=== PATIENT | female | born 1970 | race Caucasian/White ===

== ENCOUNTER 2020-09-17 18:11 | Inpatient (IN) | payer BC ==
[~2020-09-17] VITALS: Ht 162.6 cm; Wt 79.4 kg
[2020-09-17 17:00] VITALS: BP 116/57
[~2020-09-17 18:11] MED LIST: APIX5TAB PO; ATOR40TA59 PO; CARV3.1210 PO; CLOP75TA PO; FURO40TA4 PO; LISI-338 PO; PANT40TA77 PO; POTA20TA4 PO
[2020-09-17 19:00] VITALS: BP 104/53
[2020-09-17] MEDS ORDERED: diphenhydrAMINE 50 MG/ML VIAL IVP PRN (20:00)
[2020-09-17] MEDS ORDERED: DOCUSATE SODIUM 100 MG CAPSULE. PO PRN (20:00)
[2020-09-17] MEDS ORDERED: ACETAMINOPHEN 325 MG TABLET. PO PRN (20:00)
[2020-09-17] MEDS ORDERED: ONDANSETRON PF 4 MG/2 ML VIAL. IV PRN (20:00)
[2020-09-17] MEDS ORDERED: guaiFENesin ORAL 200 MG/10 ML LIQUID. PO PRN (20:00)
--- NOTE | 2020-09-17 20:37 | NUR ---
Notified ICU charge nurse of positive sepsis screen results. Recommended to recheck lactic and call back with results. Notifed Dr. Becerril. Will continue to monitor.
[2020-09-17] MEDS ORDERED: ATORVASTATIN CALCIUM 40 MG TABLET. PO SCH (21:00)
[2020-09-17] MEDS ORDERED: PIP/TAZO PER PHARMACY MC PRN (21:15)
[2020-09-17] MEDS ORDERED: VANCOMYCIN 2 GM in IV NORMAL SALINE 500ML BAG 500 ML IV ONE (21:30)
[2020-09-17] MEDS: APIXABAN 5 MG TABLET. PO SCH (22:02)
[2020-09-17] MEDS: FUROSEMIDE 40 MG/4 ML VIAL. IVP SCH (22:02)
[2020-09-17] MEDS: VANCOMYCIN PER PHARMACY MC PRN (22:23)
--- NOTE | 2020-09-17 22:51 | NUR ---
Pharmacy Vancomycin Dosing Note S:Consulted to monitor and dose vancomycin started 09/17/20. O:MARJAN LAZO is a 50 year old F with UTI ACUTE RESP FAILURE W/HYPOXIA . Height: 5 feet, 4 inches Weight: 80.0 kg [place] Body Weight: 54.70 Adjusted Body Weight: 64.82 Dosing Weight: Actual Other Antibiotics: ZOSYN 3/375GM IV Q6H LABS: Last BUN: 12 Last Creatinine: 1.2 Creatinine Clearance: 59 mL/min Last WBC: 16.4 Last Procalcitonin: Tmax (past 24 hours): Microbiology: I/O: Drug Levels: Last level: on at Last dose given at Vancomycin Dosing: Loading Dose: 2000 mg x1 09/17/20 2200 Dosing Weight: Actual Target Trough: 15-20 A: Based on: Actual WT and CrCl NOTE:PT TANSFERED FROM [facility] USED(09/17/20 12:33 [facility] LABS) P: 1. 09/18/20 1000 Vancomycin 1250 mg IV q12h 2. Follow up Trough level on 09/19/20 at 0930 3. Pharmacy will continue to monitor, follow and adjust therapy as needed. VERO MITCHELL RPH, 09/17/202250 Signed: 09/17/20 at 2255 by VERO MITCHELL RPH PHA Signed: 09/17/20 at 9995 by VERO MITCHELL [facility]
[2020-09-17 23:41] VITALS: BP 121/63
[2020-09-17] MEDS: PIPERACILLIN/TAZOBACTAM 3.375 GM in IV NORMAL SALINE 50ML 50 ML IV SCH (23:49)
[2020-09-18] VITALS (7 sets, daily range): BP systolic 96–113; BP diastolic 50–62
[2020-09-18 04:56] LABS: BASE EXCESS ABG 5 mmol/L (-3-3); HCO3 ABG 30 mmol/L (21-28); PCO2 ABG 46 mmHg (35-46); PO2 ABG 186 mmHg (75-108); SAT O2 ABG 99 % (92-99)
[2020-09-18 04:58] LABS: FIO2 ABG 60
[2020-09-18 05:09] LABS: BASO # 0.1 x10^3/uL (0.0-0.2); BASO % 1 % (0-3); EOS # 0.1 x10^3/uL (0.0-0.7); EOS % 1 % (0-3); HEMATOCRIT 30.5 % (36.0-47.0); HEMOGLOBIN 10.1 g/dL (12.0-15.5); LYMPH # 1.8 x10^3/uL (1.0-4.8); LYMPH % 22 % (24-48); MEAN CORPUSCULAR HEMOGLOBIN 27 pg (25-35); MEAN CORPUSCULAR HGB CONC 33 g/dL (31-37); MEAN CORPUSCULAR VOLUME 83 fL (79-100); MONO # 0.6 x10^3/uL (0.0-1.1); MONO % 8 % (0-9); NEUT # 5.6 x10^3/uL (1.8-7.7); NEUT % 69 % (31-73); PLATELET COUNT 294 x10^3/uL (140-400); RED BLOOD COUNT 3.68 x10^6/uL (3.50-5.40); RED CELL DISTRIBUTION WIDTH 16.2 % (11.5-14.5); WHITE BLOOD COUNT 8.2 x10^3/uL (4.0-11.0)
[2020-09-18 05:15] LABS: CALCIUM 8.8 mg/dL (8.5-10.1); CREATININE 0.9 mg/dL (0.6-1.0); GFR 66.3; POTASSIUM 3.7 mmol/L (3.5-5.1)
[2020-09-18] MEDS: PIPERACILLIN/TAZOBACTAM 3.375 GM in IV NORMAL SALINE 50ML 50 ML IV SCH ×3 (06:32→16:20)
[2020-09-18] MEDS ORDERED: POTASSIUM CHLORIDE 20 MEQ TABLET.ER. PO SCH (08:00)
[2020-09-18] MEDS ORDERED: CLOPIDOGREL BISULFATE 75 MG TABLET PO SCH (08:00)
[2020-09-18] MEDS ORDERED: CARVEDILOL 3.125 MG TABLET. PO SCH (08:00)
[2020-09-18] MEDS ORDERED: RANO500T2 PO (08:55)
[2020-09-18] MEDS ORDERED: POTA10TA12 PO (08:55)
[2020-09-18] MEDS ORDERED: FURO-68 PO (08:55)
[2020-09-18] MEDS ORDERED: DAPA5TAB PO (08:55)
[2020-09-18] MEDS ORDERED: ATOR10TA PO (08:55)
[2020-09-18] MEDS ORDERED: CITA40TA12 PO (08:55)
[2020-09-18] MEDS ORDERED: HYDR25TA PO (08:55)
[2020-09-18] MEDS ORDERED: METO-239 PO (08:55)
[2020-09-18] MEDS ORDERED: SACU1TAB PO (08:55)
[2020-09-18] MEDS ORDERED: TICA90TA PO (08:55)
[2020-09-18] MEDS ORDERED: ISOS30TA4 PO (08:55)
[2020-09-18] MEDS ORDERED: SPIR25TA5 PO (08:55)
[2020-09-18] MEDS: APIXABAN 5 MG TABLET. PO SCH (09:00)
[2020-09-18] MEDS ORDERED: LISINOPRIL 5 MG TABLET. PO SCH (09:00)
[2020-09-18] MEDS ORDERED: FLU VACC QS 2020-21(6MOS+)/PF 0.5 ML SYRINGE. VAX IM ONE (09:00)
[2020-09-18] MEDS: PANTOPRAZOLE 40 MG TABLET.DR. PO SCH (09:45)
[2020-09-18] MEDS: FUROSEMIDE 40 MG/4 ML VIAL. IVP SCH ×2 (09:45→15:11)
[2020-09-18] MEDS: LORazepam 0.5 MG TABLET PO PRN ×2 (09:48→20:49)
[2020-09-18] MEDS ORDERED: VANCOMYCIN 1.25 GM in IV NORMAL SALINE 250ML 250 ML IV SCH (10:00)
[2020-09-18] MEDS ORDERED: ANTI-COAG MONITOR BY PHARMACY. MC PRN (10:15)
--- NOTE | 2020-09-18 11:02 | CONS ---
DATE OF CONSULTATION: PULMONARY CONSULTATION ATTENDING PHYSICIAN: Dr. Ranjith Becerril. REASON FOR CONSULTATION: Respiratory failure. HISTORY OF PRESENT ILLNESS: The patient is a 50-year-old female who has history of COPD. She has history of respiratory failure secondary to pulmonary edema in July. The patient also has a history of cardiac catheterization in 06/2019 and was found to have multivessel coronary artery disease. She underwent stenting to LAD. Her ejection fraction is 25%. She was brought into the hospital with increased shortness of breath. She denies any cough, fever, chills. No anterior chest pain. She did have some left-sided chest pain. The patient denies any increased leg edema. Her chest x-ray was consistent with cardiomegaly and congestive heart failure. Her arterial blood gases revealed a pH of 7.43, pCO2 of 46 and a pO2 of 186 on 60% FiO2. She was treated with BiPAP. Her proBNP was 8500. She is currently off the BiPAP and on nasal cannula. PAST MEDICAL HISTORY: Significant for history of COPD, 30 years of tobacco use, history of diabetes, history of pneumonia, history of respiratory failure secondary to pulmonary edema, history of severe cardiomyopathy with an EF of 25%, ischemic type and history of previous non-STEMI. PAST SURGICAL HISTORY: Appendectomy, and hysterectomy. ALLERGIES: BEE VENOM. REVIEW OF SYSTEMS: Twelve-point system obtained. Pertinent positives discussed in my history of present illness, otherwise noncontributory. All systems that were negative were reviewed as well. SOCIAL HISTORY: She smoked for about 30+ years before recently quitting tobacco. FAMILY HISTORY: Noncontributory to lungs. MEDICATIONS: All reviewed as listed in the MRAD including antibiotics. PHYSICAL EXAMINATION: VITAL SIGNS: Stable. Pulse ox 100%, afebrile, blood pressure 96/51. HEENT: Sclerae nonicteric. NECK: Supple. LUNGS: With diminished breath sounds. CARDIOVASCULAR: With a regular rate. ABDOMEN: Soft. EXTREMITIES: With no pitting edema. LABORATORY DATA: Reviewed. BUN 11, creatinine 0.7. ABG discussed in my history of present illness. White cell count 8.2, hemoglobin 10.1 and platelets 294. IMPRESSION: 1. Acute hypoxic respiratory failure secondary to recurrent acute on chronic systolic congestive heart failure. The patient has prior intubation secondary to congestive heart failure in July. 2. Severe cardiomyopathy with an ejection fraction of 25%, ischemic type. Status post stenting in June of left anterior descending. 3. Underlying chronic obstructive pulmonary disease. 4. Abnormal chest x-ray consistent with congestive heart failure. 5. No clinical symptoms suggestive of pneumonia. RECOMMENDATIONS: 1. Continue present diuresis. 2. P.r.n. BiPAP, currently off. 3. Antibiotics can be discontinued. Clinical suspicion for pneumonia is low. 4. Follow cardiology recommendations. 5. Continue Plavix per Cardiology. 6. PPI. 7. Anticoagulation with Eliquis per Cardiology. 8. Discussed with RN and we will follow along with you. MARIE WAYNE MD DR: GENA/leann JOB#: [id number] / [id number]
--- NOTE | 2020-09-18 11:23 | HP ---
ADMIT DATE: 09/18/2020 CHIEF COMPLAINT: Shortness of breath. HISTORY OF PRESENT ILLNESS: The patient is a pleasant 50-year-old female who has known COPD and CHF. She presents with shortness of breath, rates it a 7/10. She has associated weakness, has been occurring for several days. She increased her home meds, but that did not work. She is also COVID positive, apparently. I discussed the case with the ER physician. The patient has now been admitted to the COVID floor where she is being examined. I am planning to consult Pulmonary Medicine and Cardiology and give her COVID protocol and COPD protocol. PAST MEDICAL HISTORY: COPD, hypertension, hyperlipidemia, arthritis, chronic pain, GERD. ALLERGIES: BEES. FAMILY HISTORY: Diabetes. SOCIAL HISTORY: She still smokes. No drink or drugs. MEDICATIONS: Reviewed, please refer to the MRAD. REVIEW OF SYSTEMS: GENERAL: No history of weight change, weakness or fevers. SKIN: No bruising, hair changes or rashes. EYES: No blurred, double or loss of vision. NOSE AND THROAT: No history of nosebleeds, hoarseness or sore throat. HEART: No history of palpitations, chest pain or shortness of breath on exertion. PULMONARY: She complains of shortness of breath and cough. GASTROINTESTINAL: Denies changes in appetite, nausea, vomiting, diarrhea or constipation. GENITOURINARY: No history of frequency, urgency, hesitancy or nocturia. NEUROLOGIC: Denies history of numbness, tingling, tremor or weakness. PSYCHIATRIC: No history of panic, anxiety or depression. ENDOCRINE: No history of heat or cold intolerance, polyuria or polydipsia. EXTREMITIES: Denies muscle weakness, joint pain, pain on walking or stiffness. PHYSICAL EXAMINATION: VITALS: Within normal limits and are stable. GENERAL: No apparent distress. Alert and oriented. HEENT: Normal cephalic atraumatic, external auditory canals are patent. EYES: Extraocular muscles are intact, pupils are equally round and reactive to light and accommodation. MUSCULOSKELETAL: Well developed, well nourished, good range of motion ENDOCRINE: No thyromegaly was palpated. LYMPHATICS: No cervical chain or axillary nodes were noted. HEMATOPOIETIC: No bruising. NECK: Supple, no JVD, no thyromegaly was noted. PULMONARY: She has bibasilar crackles. HEART: RRR, S1, S2 present. Peripheral pulses intact, no obvious murmurs were noted. ABDOMEN: Soft, nontender. Positive bowel sounds no organomegaly, normal bowel sounds. EXTREMITIES: Without any cyanosis, clubbing, or edema. Pedal pulses intact, Homans sign is negative. NEUROLOGIC: Normal speech, normal tone. A & O x3, moves all extremities, no obvious focal deficits. PSYCHIATRIC: Normal affect, normal mood. Stable. SKIN: No ulcerations or rashes, good skin turgor, no jaundice. VASCULAR: Good capillary refill, neurovascular bundle appears to be intact. IMAGING: Chest x-ray is pending. LABORATORY DATA: White count 8, hemoglobin 10, platelets 294. Electrolytes: Sodium 142, potassium 3.7, chloride 105, bicarbonate 29, BUN 11, creatinine 0.9, glucose 92. BNP 8543. ASSESSMENT AND PLAN: Respiratory failure, multifactorial including congestive heart failure, chronic obstructive pulmonary disease, and COVID-19. The patient has been admitted. We will start COVID protocol. Consult Pulmonary, consult Cardiology. IV Lasix, cardiac monitoring, home medications, deep venous thrombosis prophylaxis. Full code. Prognosis long-term is guarded. REDD GARCIA DO DR: ASHANTI/leann JOB#: [id number] / [id number]
[2020-09-18] MEDS: VANCOMYCIN PER PHARMACY MC PRN (11:25)
[2020-09-18] MEDS: NON FORMULARY ITEM (Dapagliflozin Propanediol (Farxiga) 5 MG) PO SCH (11:45)
[2020-09-18] MEDS ORDERED: hydrOXYzine 25 MG TABLET PO PRN ×2 (11:45)
[2020-09-18] MEDS: RANOLAZINE 500 MG TAB.ER.12H PO SCH ×2 (12:00→20:50)
[2020-09-18] MEDS: SACUBITRIL/VALSARTAN 24/26MG TABLET. PO SCH ×2 (12:00→20:48)
[2020-09-18] MEDS: ISOSORBIDE MONONITRATE ER 30 MG TAB.ER.24H PO SCH (12:00)
[2020-09-18] MEDS: SPIRONOLACTONE 25 MG TABLET PO SCH (12:00)
[2020-09-18] MEDS: METOPROLOL SUCC 24HR ER 25 MG TAB.ER.24H. PO SCH ×2 (12:00→12:52)
[2020-09-18] MEDS: POTASSIUM CHLORIDE 10 MEQ TABLET.ER. PO SCH ×2 (12:00→20:48)
--- NOTE | 2020-09-18 12:20 | PDOC2 ---
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 Bo SOURCE Source: Chart review, Patient HISTORY OF PRESENT ILLNESS HISTORY OF PRESENT ILLNESS This is a 50 yo female who presented to [facility] ER secondary to shortness of breath, respiratory distress. Has been out of most of her medications for a couple of weeks, including Entresto, Lasix, and Brilinta. Reports shortness of breath, fluid retention, and orthopnea. Denies any fever, no productive cough, no COVID-19 contact. CXR upon arrival with pulmonary edema. Was transferred to [facility] for further evaluation and treatment. Denies any chest pain, palpitations, dizziness, diaphoresis, or nausea/vomiting. Has a h/o CAD and ischemic cardiomyopathy. Was late-presentation STEMI 07/2019. Underwent PCI/stent at that time. Unfortunately, failed to f/u in clinic following STEMI. Reports she has be evaluation by [facility] Heart Failure team, but has not seem them since November. Symptoms have improved with IV diuresis. PAST MEDICAL HISTORY Cardiovascular: CAD, CHF, [place] Pulmonary: COPD GI: GERD Psych: Anxiety, Depression Endocrine: Diabetes PAST SURGICAL HISTORY Past Surgical History: Appendectomy, Hysterectomy FAMILY HISTORY Family History: Hypertension SOCIAL HISTORY Social History Smoke: <1 pack per day ALCOHOL: none Drugs: None Lives: alone CURRENT MEDICATIONS CURRENT MEDICATIONS Current Medications Medications (Trade) Dose Ordered Sig/Zeferino Route PRN Reason Start Time Stop Time Status Last Admin Dose Admin Acetaminophen (Tylenol) 650 mg PRN Q4HRS PRN PO TEMP OVER 100.4F OR MILD PAIN 09/17/20 20:00 09/18/20 09:45 Lorazepam (Ativan) 0.5 mg PRN Q4HRS PRN PO ANXIETY / AGITATION 09/17/20 20:00 09/18/20 09:48 Apixaban (Eliquis) 5 mg BID PO 09/17/20 21:00 09/18/20 11:42 DC 09/17/20 22:02 Atorvastatin Calcium (Lipitor) 40 mg QHS PO 09/17/20 21:00 09/18/20 11:42 DC 09/17/20 22:02 Pantoprazole Sodium (Protonix) 40 mg DAILYAC PO 09/18/20 07:30 09/18/20 09:45 Potassium Chloride (Klor-Con) 20 meq DAILYWBKFT PO 09/18/20 08:00 09/18/20 11:42 DC 09/18/20 09:46 Furosemide (Lasix) 40 mg BID92 IVP 09/17/20 20:15 09/18/20 09:45 Vancomycin HCl (Vanco Per Pharmacy) 1 each PRN DAILY PRN MC SEE COMMENTS 09/17/20 21:30 09/18/20 11:25 Vancomycin HCl 2 gm/Sodium Chloride 500 ml @ 250 mls/hr 1X ONCE IV 09/17/20 21:30 09/17/20 23:29 DC 09/17/20 22:04 Piperacillin Sod/ Tazobactam Sod 3.375 gm/Sodium Chloride 50 ml @ 100 mls/hr Q6HRS IV 09/18/20 00:00 09/18/20 06:32 Vancomycin HCl 1.25 gm/Sodium Chloride 250 ml @ 166.667 mls/hr Q12H IV 09/18/20 10:00 09/18/20 09:50 ALLERGIES ALLERGIES: Coded Allergies: bee venom protein (honey bee) (Verified Allergy, Severe, ANAPHYLAXIS, 08/19/19) I S O L A T I O N *CONTACT* (Verified Allergy, Unknown, 09/01/19) mrsa/stenotrophomonas maltophilia ROS Review of System 14 point ROS conducted with pertinent positives noted above in HPi PHYSICAL EXAM General: Alert, Oriented X3, Cooperative HEENT: Atraumatic, Mucous membr. moist/pink Lungs: Other (on NC. NAD. CXR reviewed. ) Heart: Regular rate (tele SR) Abdomen: Other (non-distended ) Extremities: Other (trace bilateral LE edema ) Skin: No significant lesion Neuro: Normal speech Psych/Mental Status: Mental status NL, Mood NL, Other (drowsy) VITALS/I&O VITALS/I&O: Vital Signs Date Time Temp Pulse Resp B/P (MAP) Pulse Ox O2 Delivery O2 Flow Rate FiO2 09/18/20 10:56 98.7 84 18 103/56 (72) 91 Nasal Cannula 98.7 09/18/20 08:00 3.0 I & O 09/17/20 09/17/20 09/18/20 15:00 23:00 07:00 Intake Total 200 ml 550 ml Balance 200 ml 550 ml LABS Lab: Laboratory Tests Test 09/17/20 21:00 09/18/20 04:47 09/18/20 04:54 Lactic Acid Level 1.1 mmol/L (0.4-2.0) White Blood Count 8.2 x10^3/uL (4.0-11.0) Red Blood Count 3.68 x10^6/uL (3.50-5.40) Hemoglobin 10.1 g/dL (12.0-15.5) L Hematocrit 30.5 % (36.0-47.0) L Mean Corpuscular Volume 83 fL (79-100) Mean Corpuscular Hemoglobin 27 pg (25-35) Mean Corpuscular Hemoglobin Concent 33 g/dL (31-37) Red Cell Distribution Width 16.2 % (11.5-14.5) H Platelet Count 294 x10^3/uL (140-400) Neutrophils (%) (Auto) 69 % (31-73) Lymphocytes (%) (Auto) 22 % (24-48) L Monocytes (%) (Auto) 8 % (0-9) Eosinophils (%) (Auto) 1 % (0-3) Basophils (%) (Auto) 1 % (0-3) Neutrophils # (Auto) 5.6 x10^3/uL (1.8-7.7) Lymphocytes # (Auto) 1.8 x10^3/uL (1.0-4.8) Monocytes # (Auto) 0.6 x10^3/uL (0.0-1.1) Eosinophils # (Auto) 0.1 x10^3/uL (0.0-0.7) Basophils # (Auto) 0.1 x10^3/uL (0.0-0.2) Sodium Level 142 mmol/L (136-145) Potassium Level 3.7 mmol/L (3.5-5.1) Chloride Level 105 mmol/L (98-107) Carbon Dioxide Level 29 mmol/L (21-32) Anion Gap 8 (6-14) Blood Urea Nitrogen 11 mg/dL (7-20) Creatinine 0.9 mg/dL (0.6-1.0) Estimated GFR (Cockcroft-Gault) 66.3 Glucose Level 92 mg/dL (70-99) Calcium Level 8.8 mg/dL (8.5-10.1) IP-Hgh-N-Type Natriuretic Peptide 8543 pg/mL (0-124) H O2 Saturation 99 % (92-99) Arterial Blood pH 7.43 (7.35-7.45) Arterial Blood pCO2 at Patient Temp 46 mmHg (35-46) Arterial Blood pO2 at Patient Temp 186 mmHg (75-108) H Arterial Blood HCO3 30 mmol/L (21-28) H Arterial Blood Base Excess 5 mmol/L (-3-3) H FiO2 60 Laboratory Tests 09/18/20 04:47 Laboratory Tests 09/18/20 04:47 ECHOCARDIOGRAM ECHOCARDIOGRAM <Conclusion> The systolic function is severely impaired. EF 25% There is global hypokinesis of the left ventricle. The IVC is normal in size and collapses <50% with inspiration. DATE: 08/19/19 1535 HEART CATH HEART CATH Conclusion 1. Late presentation of an anterior STEMI 2. Three vessel coronary disease. 3. Cardiogenic shock with severe LV dysfunction. EF 25%. 4. Severe PAD 5. Successful placement of a Resolute 3.5/38 mm NIYA in the proximal to mid LAD Recommendations ASA 81mg daily Continue tirofiban infusion Continue heparin gtt Diuresis as tolerated with continued support with pressors. Vascular surgery consult for possible embolectomy if any progressive CLI. DATE: 08/19/19 1115 ASSESSMENT/PLAN ASSESSMENT/PLAN 1. Acute respiratory failure with CHF, AE COPD 2. Acute on chronic systolic CHF; due to missed meds. Has been out of Lasix/Entresto x 2 weeks. Has been evaluated by [facility] HF team. Last followup in November. 3. CAD s/p PCI/NIYA to LAD 07/2019. late presentation STEMI 4. Ischemic cardiomyopathy; LVEF 25% per echo 08/07 5. LE PAD 6. Diabetes, II 7. Tobaccoism; discussed/encouraged cessation 8. PUI Recommendations Diuresis with monitoring of renal function Resume Entresto, Toprol, aldactone Secondary prevention Brilinta, statin. Add ASA Obtain cardiac records from [facility] Echo if none recently (if COVID negative) to re-evaluate LVEF Supportive care Discussed importance of medical compliance JULIEN ANN MD 09/18/20 0216: CARDIAC CONSULT ASSESSMENT/PLAN ASSESSMENT/PLAN The patient was seen and interviewed as well as examined at the bedside. The benita rt was reviewed. The case was discussed. Agree with the plan of care. EMILY SORIA APRN Sep 18, 2020 12:19 JULIEN ANN MD Sep 18, 2020 16:56
[2020-09-18] MEDS: CITALOPRAM 20 MG TABLET. PO SCH (12:48)
[2020-09-18] MEDS: TICAGRELOR 90 MG TABLET. PO SCH ×2 (12:49→20:48)
[2020-09-18] MEDS: HYDROcodone/APAP 5/325MG 1 TAB TABLET PO PRN ×2 (12:49→20:56)
[2020-09-18] MEDS: LACTOBACILLUS RHAMNOSUS GG 1 CAPSULE. PO SCH ×2 (12:52→20:51)
--- NOTE | 2020-09-18 17:33 | NUR ---
JUDI following for discharge planning. Spoke with RN and reviewed chart. Pt from home. Pt ASHLEY pending, 2l 02, cardiac diet. Pt on IV Zosyn and IV Vanco. JUDI following. Addendum: 09/19/20 at 0910 by NAMITA LAU Pt transferred to . leonard Gaston to follow.
[2020-09-18] MEDS ORDERED: ATORVASTATIN CALCIUM 10 MG TABLET. PO SCH (21:00)
[2020-09-19] VITALS (8 sets, daily range): BP systolic 90–123; BP diastolic 49–84
--- NOTE | 2020-09-19 00:20 | NUR ---
Pt transferred from 6s with belongings ,via wc with seamer. Pt a/ox4, denies c/o pain at this time. Pt oriented to unit, staff, explained poc. call light in reach, vss, will cont to monitor pt status and safety. pmrn
--- NOTE | 2020-09-19 08:33 | PDOC ---
PULMONARY PROGRESS NOTES DATE: 09/19/20 TIME: 08:32 Subjective Patient feels better off of BiPAP on oxygen supplementation normally does not wear oxygen Vitals Vital Signs Date Time Temp Pulse Resp B/P (MAP) Pulse Ox O2 Delivery O2 Flow Rate FiO2 09/19/20 07:29 98.6 82 18 90/49 (63) 97 Nasal Cannula 2.0 98.6 ROS: No Nausea, No Chest Pain, No Abdominal Pain, No Increase Cough General: Alert Lungs: Clear Cardiovascular: S1, S2 Abdomen: Soft Neuro Exam: Alert Extremities: No Edema Skin: Warm Labs Laboratory Tests Test 09/17/20 21:00 09/18/20 00:01 09/18/20 04:47 09/18/20 04:54 Lactic Acid Level 1.1 mmol/L (0.4-2.0) Coronavirus (PCR) Not detected (Not Detected) White Blood Count 8.2 x10^3/uL (4.0-11.0) Red Blood Count 3.68 x10^6/uL (3.50-5.40) Hemoglobin 10.1 g/dL (12.0-15.5) Hematocrit 30.5 % (36.0-47.0) Mean Corpuscular Volume 83 fL (79-100) Mean Corpuscular Hemoglobin 27 pg (25-35) Mean Corpuscular Hemoglobin Concent 33 g/dL (31-37) Red Cell Distribution Width 16.2 % (11.5-14.5) Platelet Count 294 x10^3/uL (140-400) Neutrophils (%) (Auto) 69 % (31-73) Lymphocytes (%) (Auto) 22 % (24-48) Monocytes (%) (Auto) 8 % (0-9) Eosinophils (%) (Auto) 1 % (0-3) Basophils (%) (Auto) 1 % (0-3) Neutrophils # (Auto) 5.6 x10^3/uL (1.8-7.7) Lymphocytes # (Auto) 1.8 x10^3/uL (1.0-4.8) Monocytes # (Auto) 0.6 x10^3/uL (0.0-1.1) Eosinophils # (Auto) 0.1 x10^3/uL (0.0-0.7) Basophils # (Auto) 0.1 x10^3/uL (0.0-0.2) Sodium Level 142 mmol/L (136-145) Potassium Level 3.7 mmol/L (3.5-5.1) Chloride Level 105 mmol/L (98-107) Carbon Dioxide Level 29 mmol/L (21-32) Anion Gap 8 (6-14) Blood Urea Nitrogen 11 mg/dL (7-20) Creatinine 0.9 mg/dL (0.6-1.0) Estimated GFR (Cockcroft-Gault) 66.3 Glucose Level 92 mg/dL (70-99) Calcium Level 8.8 mg/dL (8.5-10.1) GG-Xde-X-Type Natriuretic Peptide 8543 pg/mL (0-124) O2 Saturation 99 % (92-99) Arterial Blood pH 7.43 (7.35-7.45) Arterial Blood pCO2 at Patient Temp 46 mmHg (35-46) Arterial Blood pO2 at Patient Temp 186 mmHg (75-108) Arterial Blood HCO3 30 mmol/L (21-28) Arterial Blood Base Excess 5 mmol/L (-3-3) FiO2 60 Medications Active Scripts Medications Dose Route/Sig Max Daily Dose Days Date Category Ranexa (Ranolazine) 500 Mg Tab.er.12h 1 Tab PO BID 30 09/18/20 Reported Klor-Con 10 (Potassium Chloride) 10 Meq Tablet.er 2 Tab PO BID 30 09/18/20 Reported Metoprolol Succinate ( Xl ) (Metoprolol Succinate) 25 Mg Tab.er.24h 0.5 Tab PO DAILY 09/18/20 Reported Spironolactone 25 Mg Tablet 0.5 Tab PO DAILY 09/18/20 Reported Hydroxyzine Hcl 25 Mg Tablet 1-2 Tab PO PRN QHS PRN 09/18/20 Reported Isosorbide Mononitrate Er (Isosorbide Mononitrate) 30 Mg Tab.er.24h 1 Tab PO DAILY 09/18/20 Reported Lasix (Furosemide) 40 Mg Tablet 40 Mg PO BID 09/18/20 Reported Celexa (Citalopram Hydrobromide) 40 Mg Tablet 1 Tab PO DAILY 09/18/20 Reported Lipitor (Atorvastatin Calcium) 10 Mg Tablet 1 Tab PO DAILY 09/18/20 Reported Brilinta (Ticagrelor) 90 Mg Tablet 90 Mg PO BID 09/18/20 Reported Farxiga (Dapagliflozin Propanediol) 5 Mg Tablet 5 Mg PO DAILY 09/18/20 Reported Entresto 24 mg-26 mg Tablet (Sacubitril/Valsartan) 1 Each Tablet 1 Each PO BID 09/18/20 Reported Pantoprazole Sodium (Pantoprazole Sodium) 40 Mg Tablet.dr 40 Mg PO DAILYAC 30 09/01/19 Rx Impression . IMPRESSION: 1. Acute hypoxic respiratory failure secondary to recurrent acute on chronic systolic congestive heart failure. The patient has prior intubation secondary to congestive heart failure in July. 2. Severe cardiomyopathy with an ejection fraction of 25%, ischemic type. Status post stenting in June of left anterior descending. 3. Underlying chronic obstructive pulmonary disease. 4. Abnormal chest x-ray consistent with congestive heart failure. 5. No clinical symptoms suggestive of pneumonia. Plan . Continue current oxygen supplementation Diurese Follow cardiology input Can discharge from my standpoint of view next 24- 48-hour BRIGETTE JAVIER MD Sep 19, 2020 08:33
[2020-09-19] MEDS: POTASSIUM CHLORIDE 10 MEQ TABLET.ER. PO SCH ×2 (08:55→21:11)
[2020-09-19] MEDS: CITALOPRAM 20 MG TABLET. PO SCH (08:56)
[2020-09-19] MEDS: TICAGRELOR 90 MG TABLET. PO SCH (08:56)
[2020-09-19] MEDS: PANTOPRAZOLE 40 MG TABLET.DR. PO SCH (08:56)
[2020-09-19] MEDS: LACTOBACILLUS RHAMNOSUS GG 1 CAPSULE. PO SCH ×2 (08:56→21:11)
[2020-09-19] MEDS: FUROSEMIDE 40 MG/4 ML VIAL. IVP SCH ×2 (08:57→15:10)
[2020-09-19] MEDS: SACUBITRIL/VALSARTAN 24/26MG TABLET. PO SCH ×2 (09:00→21:00)
[2020-09-19] MEDS: RANOLAZINE 500 MG TAB.ER.12H PO SCH ×2 (09:00→21:11)
[2020-09-19] MEDS: NON FORMULARY ITEM (Dapagliflozin Propanediol (Farxiga) 5 MG) PO SCH (09:00)
[2020-09-19] MEDS: LORazepam 0.5 MG TABLET PO PRN ×2 (09:03→21:10)
[2020-09-19] MEDS: HYDROcodone/APAP 5/325MG 1 TAB TABLET PO PRN ×2 (09:03→21:11)
--- NOTE | 2020-09-19 09:14 | PDOC ---
PROGRESS NOTES Date of Service: DATE: 09/19/20 TIME: 09:05 Chief Complaint Chief Complaint impression ACUTE HYPOXIC Respiratory failure, multifactorial including congestive heart failure, systolic function is severely impaired. EF 25% global hypokinesis of the left ventricle ACUTE exac chronic obstructive pulmonary disease, neg COVID-19. morbid obesity Acute myocardial infarction with an elevated troponin 09-01 plan admitted. Consult Pulmonary, consult Cardiology. IV Lasix, cvc cardiac monitoring, home medications, deep venous thrombosis prophylaxis. smoking cessation education provided Full code. Prognosis long-term is guarded. 38 MIN PT EXAM, CHART REVIEW,> 50% OF TIME SPENT WITH EXAM, CHART REVIEW, PT CARE COORDINATION History of Present Illness History of Present Illness HPI 50-year-old female who has known COPD and CHF. She presented with shortness of breath, rates it a 7/10. notes associated weakness, has been occurring for several days. She increased her home meds, but that did not work. She is also COVID NEG , been admitted to the CVC floor where she is being examined. consults with Pulmonary Medicine and Cardiology Vitals Vitals Vital Signs Date Time Temp Pulse Resp B/P (MAP) Pulse Ox O2 Delivery O2 Flow Rate FiO2 09/19/20 09:03 Nasal Cannula 2.0 09/19/20 08:54 97 09/19/20 07:29 98.6 82 18 90/49 (63) 98.6 Physical Exam Physical Exam HEENT: Normal cephalic atraumatic, external auditory canals are patent. EYES: Extraocular muscles are intact, pupils are equally round and reactive to light and accommodation. MUSCULOSKELETAL: Well developed, well nourished, good range of motion ENDOCRINE: No thyromegaly was palpated. LYMPHATICS: No cervical chain or axillary nodes were noted. HEMATOPOIETIC: No bruising. NECK: Supple, no JVD, no thyromegaly was noted. PULMONARY: She has bibasilar crackles. HEART: RRR, S1, S2 present. Peripheral pulses intact, no obvious murmurs were noted. ABDOMEN: Soft, nontender. Positive bowel sounds no organomegaly, normal bowel sounds. EXTREMITIES: Without any cyanosis, clubbing, or edema. Pedal pulses intact, Homans sign is negative. NEUROLOGIC: Normal speech, normal tone. A & O x3, moves all extremities, no obvious focal deficits. PSYCHIATRIC: Normal affect, normal mood. Stable. SKIN: No ulcerations or rashes, good skin turgor, no jaundice. VASCULAR: Good capillary refill, neurovascular bundle appears to be intact. General: Alert, Oriented X3, Cooperative, No acute distress Heart: Regular rate (tele SR), Normal S1 Lungs: Clear Abdomen: Soft, Other (non-distended ) Extremities: No cyanosis, Other (trace bilateral LE edema ) Skin: No significant lesion Labs LABS APPROVED REPORT EXAM: Two-dimensional and M-mode echocardiogram with Doppler and color Doppler. Other Information Quality : Average HR: 117bpm Technically limited study due to Rapid heart rate. INDICATION Cardiomyopathy 2D DIMENSIONS RVDd 2.5 (2.9-3.5cm) Left Atrium(2D) 3.8 (1.6-4.0cm) IVSd 1.1 (0.7-1.1cm) Aortic Root(2D) 2.9 (2.0-3.7cm) LVDd 5.4 (3.9-5.9cm) LVOT Diameter 1.9 (1.8-2.4cm) PWd 1.1 (0.7-1.1cm) LVDs 3.7 (2.5-4.0cm) FS (%) 31.9 % SV 84.7 ml LVEF(%) 59.5 (>50%) Aortic Valve AoV Peak Erick. 108.3cm/s AoV VTI 17.0cm AO Peak GR. 4.7mmHg LVOT VTI 10.28cm AO Mean GR. 4mmHg TDI Lateral E' P. V 5.86cm/s Medial E' P. V 4.57cm/s Pulmonary Vein S1 Velocity 28.1cm/s S2 Velocity 45.85cm/s D2 Velocity 45.8cm/s PVa duration 101msec LEFT VENTRICLE The Left Ventricle is borderline dilated. There is mild concentric left ventricular hypertrophy. The systolic function is severely impaired. EF 25% There is global hypokinesis of the left ventricle. Tissue Doppler imaging reveals moderate left ventricular diastolic dysfunction. RIGHT VENTRICLE The right ventricle is normal size. There is normal right ventricular wall thickness. RV Systolic function is mildly to moderately reduced. ATRIA The left atrium size is normal. The right atrium size is normal. The interatrial septum is intact with no evidence for an atrial septal defect or patent foramen ovale as noted on 2-D or Doppler imaging. AORTIC VALVE The aortic valve is not well visualized. Doppler and Color Flow revealed no significant aortic regurgitation. There is no significant aortic valvular stenosis. MITRAL VALVE The mitral valve is normal in structure and function. There is no evidence of mitral valve prolapse. There is no mitral valve stenosis. Doppler and Color-flow revealed trace mitral regurgitation. TRICUSPID VALVE The tricuspid valve is normal in structure and function. Doppler and Color Flow revealed trace tricuspid regurgitation. There is no tricuspid valve stenosis. PULMONIC VALVE The pulmonic valve is not well visualized. Doppler and Color Flow revealed no pulmonic valvular regurgitation. There is no pulmonic valvular stenosis. GREAT VESSELS The aortic root is normal in size. The IVC is normal in size and collapses <50% with inspiration. PERICARDIAL EFFUSION There is no evidence of significant pericardial effusion. Critical Notification Critical Value: No <Conclusion> The systolic function is severely impaired. EF 25% There is global hypokinesis of the left ventricle. The IVC is normal in size and collapses <50% with inspiration. Signed by : Julien Moore, Electronically Approved : 08/19/2019 17:08:08 DICTATED AND SIGNED BY: IRWIN HESTER MD DATE: 08/25/19 1539 CC: SAMARA WILLIS II, MD; CHINA SCOTT MD; JULIEN MOORE MD; NO PC P; KAYLA KWOK MD; BRIGETTE JAVIER MD ~ EXAM: CT OF THE CHEST, ABDOMEN AND PELVIS WITHOUT CONTRAST. HISTORY: Fever of unknown origin. TECHNIQUE: Computed tomography of the chest, abdomen and pelvis was performed without intravenous contrast. COMPARISON: None. FINDINGS: Bone windows reveal no suspicious lesions. An endotracheal tube has its tip above the kami. A nasogastric tube has its tip just below the gastroesophageal junction. There are no pathologically enlarged mediastinal or axillary lymph nodes. There is no pericardial effusion. The heart is mildly enlarged. The main pulmonary artery measures 3.6 cm. There are atherosclerotic calcifications of the coronary arteries. There are small bilateral pleural effusions. The posterior aspect of both lower lobes are atelectatic. Interstitial line thickening indicates mild pulmonary edema. An uncalcified nodule in the left lower lobe measures 4 mm and may be associated with mild infiltrate. Groundglass opacities in the bases most likely reflect mild edema. The liver, spleen, adrenal glands, pancreas and kidneys are unremarkable without contrast. There is vicarious excretion of contrast in the gallbladder. There is mild pericholecystic edema. There are no pathologically enlarged lymph nodes. The bladder is decompressed by a Ramos catheter. There are changes of pelvic floor relaxation. There is no evidence of appendicitis. There is no small bowel obstruction. Bilateral inguinal lymph nodes are prominent measuring up to 2.7 x 1.2 cm on the right. Lower extremity edema is noted. IMPRESSION: 1. Small to moderate bilateral pleural effusions with bilateral dependent atelectasis and mild pulmonary edema. Superimposed infection and atelectasis cannot be excluded. 2. Prominent bilateral inguinal lymph nodes may reflect lower extremity inflammation. Correlate clinically. 3. Enlargement of the pulmonary arteries suggests pulmonary arterial hypertension. Mild cardiomegaly. *One or more of the following individualized dose reduction techniques were utilized for this examination: 1. Automated exposure control. 2. Adjustment of the mA and/or kV according to patient size. 3. Use of iterative reconstruction technique. Electronically signed by: Lalit Hester MD (08/25/2019 3:36 PM) [facility] DICTATED and SIGNED BY: IRWIN HESTER MD DATE: 08/25/19 1536 Assessment and Plan Assessmemt and Plan Counseling Smoking Cessation A clinician can make a significant impact on a tobacco user. Clinicians can address the social, financial, and emotional issues surrounding tobacco use, in addition to the health impacts associated with use. Find information about why it's important to certified personal finance counselor tobacco users, as well as when and how to do so. Get the why, when, and how of helping patients quit in this infographic. Supporting Youth who are Addicted to Nicotine: Advice for Pediatricians This factsheet provides information for pediatricians about how to support adolescents who are addicted to nicotine from cigarettes, vaping, or other tobacco products. The content includes tips for screening, counseling, and helping youth with a cessation attempt. This factsheet is also available in Hebrew Nicotine Replacement Therapy and Adolescent Patients: Information for Pediatricians This document provides information for pediatricians about how to use nicotine replacement therapy (NRT) to support adolescents who are addicted to nicotine from cigarettes, vaping, or other tobacco products. Note: Though the information below talks mostly about smoking, the information can be helpful for users of other tobacco products as well. Why Should You [employer] for Smoking Cessation? Parental smoking is the main source of children's secondhand smoke exposure. When parents quit smoking, adolescents are less likely to start. Pediatric clinicians have direct contact with roughly 25% of the nation's smokers through child health visits. Parental counseling by the child's physician increases rates of parents' attempts to quit. Most parents see their child's provider more frequently than their own, with an average of 10 visits in the first two years of a child's life. While many children are covered by Medicaid, their parents may be uninsured, so pediatric clinicians may be their only available source of counseling. When Should You [employer] for Smoking Cessation? If adolescents and/or parents are smoking, certified personal finance counselor them to quit tobacco use. If parents or other family members are smoking, certified personal finance counselor them to prevent and reduce children's exposure to secondhand smoke. If a new parent is a current or former smoker, assist them in their efforts to avoid relapse following . If a pre-adolescent or adolescent patient is not a smoker, certified personal finance counselor them to prevent initiation of tobacco use. How Should You [employer] for Smoking Cessation? Brief counseling, delivered in as little as three minutes, can be effective. Focus on the child as a primary beneficiary of smoking cessation. Counseling Techniques 2 As + R Physicians can help patients who smoke to quit through an effective 30-second intervention, 2 As + R (Ask, Assist, Refer): Physicians Ask patients if they smoke, Assist them in their quit attempt, and Refer them to cessation services (1-800-QUIT NOW or to community/ internet quit resources). Information on the 2 As + R strategy can be found in the presentations listed on the Downloadable PowerPoint Presentations page. 5 As The [place] [employer] and Quality has developed five major steps to intervention (the "5 As") for clinicians to provide counseling to tobacco users who want to quit. Comment Review of Relevant I have reviewed the following items arian (where applicable) has been applied. Labs Laboratory Tests Test 09/17/20 21:00 09/18/20 00:01 09/18/20 04:47 09/18/20 04:54 Lactic Acid Level 1.1 mmol/L (0.4-2.0) Coronavirus (PCR) Not detected (Not Detected) White Blood Count 8.2 x10^3/uL (4.0-11.0) Red Blood Count 3.68 x10^6/uL (3.50-5.40) Hemoglobin 10.1 g/dL (12.0-15.5) Hematocrit 30.5 % (36.0-47.0) Mean Corpuscular Volume 83 fL (79-100) Mean Corpuscular Hemoglobin 27 pg (25-35) Mean Corpuscular Hemoglobin Concent 33 g/dL (31-37) Red Cell Distribution Width 16.2 % (11.5-14.5) Platelet Count 294 x10^3/uL (140-400) Neutrophils (%) (Auto) 69 % (31-73) Lymphocytes (%) (Auto) 22 % (24-48) Monocytes (%) (Auto) 8 % (0-9) Eosinophils (%) (Auto) 1 % (0-3) Basophils (%) (Auto) 1 % (0-3) Neutrophils # (Auto) 5.6 x10^3/uL (1.8-7.7) Lymphocytes # (Auto) 1.8 x10^3/uL (1.0-4.8) Monocytes # (Auto) 0.6 x10^3/uL (0.0-1.1) Eosinophils # (Auto) 0.1 x10^3/uL (0.0-0.7) Basophils # (Auto) 0.1 x10^3/uL (0.0-0.2) Sodium Level 142 mmol/L (136-145) Potassium Level 3.7 mmol/L (3.5-5.1) Chloride Level 105 mmol/L (98-107) Carbon Dioxide Level 29 mmol/L (21-32) Anion Gap 8 (6-14) Blood Urea Nitrogen 11 mg/dL (7-20) Creatinine 0.9 mg/dL (0.6-1.0) Estimated GFR (Cockcroft-Gault) 66.3 Glucose Level 92 mg/dL (70-99) Calcium Level 8.8 mg/dL (8.5-10.1) EM-Qbd-[id number]-Type Natriuretic Peptide 8543 pg/mL (0-124) O2 Saturation 99 % (92-99) Arterial Blood pH 7.43 (7.35-7.45) Arterial Blood pCO2 at Patient Temp 46 mmHg (35-46) Arterial Blood pO2 at Patient Temp 186 mmHg (75-108) Arterial Blood HCO3 30 mmol/L (21-28) Arterial Blood Base Excess 5 mmol/L (-3-3) FiO2 60 Microbiology 09/17/20 Blood Culture - Preliminary, Resulted NO GROWTH AFTER 1 DAY Medications Current Medications Ondansetron HCl (Zofran) 4 mg PRN Q4HRS PRN IV NAUSEA/VOMITING; Start 09/17/20 at 20:00 Acetaminophen (Tylenol) 650 mg PRN Q4HRS PRN PO TEMP OVER 100.4F OR MILD PAIN Last administered on 09/18/20at 09:45; Start 09/17/20 at 20:00 Diphenhydramine HCl (Benadryl) 25 mg PRN Q4HRS PRN IVP ITCHING; Start 09/17/20 at 20:00 Docusate Sodium (Colace) 100 mg PRN BID PRN PO HARD STOOLS; Start 09/17/20 at 20:00 Guaifenesin (Robitussin) 200 mg PRN Q4HRS PRN PO COUGH; Start 09/17/20 at 20:00 Lorazepam (Ativan) 0.5 mg PRN Q4HRS PRN PO ANXIETY / AGITATION Last administered on 09/19/20at 09:03; Start 09/17/20 at 20:00 Apixaban (Eliquis) 5 mg BID PO Last administered on 09/17/20at 22:02; Start 09/17/20 at 21:00; Stop 09/18/20 at 11:42; Status DC Atorvastatin Calcium (Lipitor) 40 mg QHS PO Last administered on 09/17/20at 22:02; Start 09/17/20 at 21:00; Stop 09/18/20 at 11:42; Status DC Carvedilol (Coreg) 3.125 mg BIDWMEALS PO ; Start 09/18/20 at 08:00; Stop 09/18/20 at 11:42; Status DC Clopidogrel Bisulfate (Plavix) 75 mg DAILYWBKFT PO ; Start 09/18/20 at 08:00; Stop 09/18/20 at 11:42; Status DC Lisinopril (Prinivil) 2.5 mg DAILY PO ; Start 09/18/20 at 09:00; Stop 09/18/20 at 11:42; Status DC Pantoprazole Sodium (Protonix) 40 mg DAILYAC PO Last administered on 09/19/20at 08:56; Start 09/18/20 at 07:30 Potassium Chloride (Klor-Con) 20 meq DAILYWBKFT PO Last administered on 09/18/20at 09:46; Start 09/18/20 at 08:00; Stop 09/18/20 at 11:42; Status DC Influenza Virus Vaccine Quadrival (Fluzone Quad Syringe) 0.5 ml ONCE ONCE VAX IM Last administered on 09/18/20at 15:15; Start 09/18/20 at 09:00; Stop 09/18/20 at 09:01; Status DC Furosemide (Lasix) 40 mg BID92 IVP Last administered on 09/19/20at 08:57; Start 09/17/20 at 20:15 Piperacillin Sod/ Tazobactam Sod (Zosyn Per Pharmacy) 1 each PRN DAILY PRN MC SEE COMMENTS; Start 09/17/20 at 21:15; Stop 09/18/20 at 18:47; Status DC Vancomycin HCl (Vanco Per Pharmacy) 1 each PRN DAILY PRN MC SEE COMMENTS Last administered on 09/18/20at 11:25; Start 09/17/20 at 21:30; Stop 09/18/20 at 18:47; Status DC Vancomycin HCl 2 gm/Sodium Chloride 500 ml @ 250 mls/hr 1X ONCE IV Last administered on 09/17/20at 22:04; Start 09/17/20 at 21:30; Stop 09/17/20 at 23:29; Status DC Piperacillin Sod/ Tazobactam Sod 3.375 gm/Sodium Chloride 50 ml @ 100 mls/hr Q6HRS IV Last administered on 09/18/20at 16:20; Start 09/18/20 at 00:00; Stop 09/18/20 at 18:47; Status DC Vancomycin HCl 1.25 gm/Sodium Chloride 250 ml @ 166.667 mls/hr Q12H IV Last administered on 09/18/20at 09:50; Start 09/18/20 at 10:00; Stop 09/18/20 at 18:47; Status DC Vancomycin HCl (Vancomycin Trough Level) 1 each 1X ONCE MC ; Start 09/19/20 at 09:30; Stop 09/19/20 at 09:31; Status Cancel Info (Anti-Coagulation Monitoring By Pharmacy) 1 each PRN DAILY PRN MC SEE COMMENTS; Start 09/18/20 at 10:15; Stop 09/18/20 at 13:51; Status DC Atorvastatin Calcium (Lipitor) 10 mg QHS PO Last administered on 09/18/20at 20:50; Start 09/18/20 at 21:00 Hydroxyzine HCl (Atarax) 25 mg PRN QHS PRN PO INSOMNIA; Start 09/18/20 at 11:45 Isosorbide Mononitrate (Imdur) 30 mg DAILY PO ; Start 09/18/20 at 12:00 Metoprolol Succinate (Toprol Xl) 12.5 mg DAILY PO ; Start 09/18/20 at 12:00 Potassium Chloride (Klor-Con) 20 meq BID PO Last administered on 09/19/20at 08:55; Start 09/18/20 at 12:00 Ranolazine (Ranexa) 500 mg BID PO Last administered on 09/18/20at 20:50; Start 09/18/20 at 12:00 Sacubitril/ Valsartan (Entresto 24 Mg-26 Mg) 1 tab BID PO Last administered on 09/18/20at 20:48; Start 09/18/20 at 12:00 Spironolactone (Aldactone) 12.5 mg DAILY PO ; Start 09/18/20 at 12:00 Ticagrelor (Brilinta) 90 mg BID PO Last administered on 09/19/20at 08:56; Start 09/18/20 at 12:00 Citalopram Hydrobromide (CeleXA) 40 mg DAILY PO Last administered on 09/19/20at 08:56; Start 09/18/20 at 12:00 Non-Formulary Medication (Dapagliflozin Propanediol (Farxiga)) 5 mg DAILY PO ; Start 09/18/20 at 11:45; Status UNV Hydroxyzine HCl (Atarax) 50 mg PRN Q6HRS PRN PO ITCHING; Start 09/18/20 at 11:45 Acetaminophen/ Hydrocodone Bitart (Lortab 5/325) 1 tab PRN Q4HRS PRN PO MODERATE TO SEVERE PAIN Last administered on 09/19/20at 09:03; Start 09/18/20 at 11:45 Lactobacillus Rhamnosus (Culturelle) 1 cap BID PO Last administered on 09/19/20at 08:56; Start 09/18/20 at 12:00 Active Scripts Active Pantoprazole Sodium (Pantoprazole Sodium) 40 Mg Tablet.dr 40 Mg PO DAILYAC 30 Days Reported Ranexa (Ranolazine) 500 Mg Tab.er.12h 1 Tab PO BID 30 Days Klor-Con 10 (Potassium Chloride) 10 Meq Tablet.er 2 Tab PO BID 30 Days Metoprolol Succinate ( Xl ) (Metoprolol Succinate) 25 Mg Tab.er.24h 0.5 Tab PO DAILY Spironolactone 25 Mg Tablet 0.5 Tab PO DAILY Hydroxyzine Hcl 25 Mg Tablet 1-2 Tab PO PRN QHS PRN Isosorbide Mononitrate Er (Isosorbide Mononitrate) 30 Mg Tab.er.24h 1 Tab PO DAILY Lasix (Furosemide) 40 Mg Tablet 40 Mg PO BID Celexa (Citalopram Hydrobromide) 40 Mg Tablet 1 Tab PO DAILY Lipitor (Atorvastatin Calcium) 10 Mg Tablet 1 Tab PO DAILY Brilinta (Ticagrelor) 90 Mg Tablet 90 Mg PO BID Farxiga (Dapagliflozin Propanediol) 5 Mg Tablet 5 Mg PO DAILY Entresto 24 mg-26 mg Tablet (Sacubitril/Valsartan) 1 Each Tablet 1 Each PO BID Vitals/I & O Vital Sign - Last 24 Hours 09/18/20 09/18/20 09/18/20 09/18/20 10:56 12:49 13:06 13:49 Temp 98.7 98.7 Pulse 84 Resp 18 B/P (MAP) 103/56 (72) 98/54 (69) Pulse Ox 91 O2 Delivery Nasal Cannula Nasal Cannula Nasal Cannula O2 Flow Rate 3.0 2.0 09/18/20 09/18/20 09/18/20 09/18/20 15:32 19:00 20:00 20:48 Temp 97.6 97.6 Pulse 87 87 Resp 18 B/P (MAP) 100/50 (67) 113/59 (77) 113/59 Pulse Ox 97 O2 Delivery Nasal Cannula Nasal Cannula O2 Flow Rate 2.0 09/18/20 09/18/20 09/18/20 09/18/20 20:50 20:56 21:56 23:00 Temp 98.1 98.1 Pulse 87 78 Resp 20 18 18 B/P (MAP) 113/59 106/62 (77) Pulse Ox 97 97 94 O2 Delivery Nasal Cannula Nasal Cannula O2 Flow Rate 2.0 2.0 09/19/20 09/19/20 09/19/20 09/19/20 00:05 01:02 03:29 07:29 Temp 98.1 98.9 98.6 98.1 98.9 98.6 Pulse 78 85 82 Resp 18 18 18 B/P (MAP) 103/54 (70) 111/55 (73) 90/49 (63) Pulse Ox 96 97 97 O2 Delivery Nasal Cannula Nasal Cannula Nasal Cannula Nasal Cannula O2 Flow Rate 2.0 2.0 2.0 2.0 09/19/20 09/19/20 08:54 09:03 Pulse Ox 97 O2 Delivery Nasal Cannula Nasal Cannula O2 Flow Rate 2.0 2.0 Intake and Output 09/18/20 09/18/20 09/19/20 15:00 23:00 07:00 Intake Total 220 ml 0 ml Balance 220 ml 0 ml Justicifation of Admission Dx: Justifications for Admission: Justification of Admission Dx: Yes CHF: Hemodynamic Instability Comments: severe ischemic cardiomyopathy KENNY LUEVANO MD Sep 19, 2020 09:14
--- NOTE | 2020-09-19 10:26 | NUR ---
SS following for discharge planning. SS reviewed pt chart and discussed with pt RN. Pt is from home and is currently requiring nasal canula oxygen. COVID19 negative. Cardiology and Pulmonology following. SS will continue to follow for discharge planning.
--- NOTE | 2020-09-19 11:50 | PDOC ---
CHETShaniaJANINATERESEKendy Golden ELECTRICIAN OFFICE 09/19/20 1150: CARDIO Progress Notes Date and Time Date of Service 09/19/2020 Time of Evaluation 1120 Subjective Subjective: No Chest Pain, No shortness of breath, No Palpitations Vitals Vitals Vital Signs Date Time Temp Pulse Resp B/P (MAP) Pulse Ox O2 Delivery O2 Flow Rate FiO2 09/19/20 10:32 97.8 80 18 96/55 (69) 97 Nasal Cannula 2.0 97.8 Weight Weight [ ] Input and Output Intake and Output Intake and Output 09/19/20 07:00 Intake Total 220 ml Balance 220 ml Intake Oral 220 ml # Voids 3 Microbiology Micro Microbiology 09/17/20 Blood Culture - Preliminary, Resulted NO GROWTH AFTER 1 DAY Physical Exam HEENT: Neck Supple W Full Motion Chest: Symmetric LUNGS: Other (diminished bases) Heart: RRR (SR) Abdomen: Soft N/T Extremities: No Edema, No Calf Tenderness Neurology: alert, oriented, follow commands Assessment Assessment 1. Acute respiratory failure with CHF, AECOPD appears compensated 2. Acute on chronic systolic CHF; due to missed meds. Has been out of Lasix/Entresto x 2 weeks. Has been evaluated by [facility] HF team. Last followup in November. 3. CAD s/p PCI/NIYA to LAD 07/2019. late presentation STEMI, clinically stable 4. Ischemic cardiomyopathy; LVEF 25% per echo 08/07 5. LE PAD: clinically stable 6. Diabetes, II 7. Tobaccoism; discussed/encouraged cessation 8. Noncompliance due to financial constraints Recommendations Continue lasix therapy, change to PO tomorrow Resume Entresto, Toprol, aldactone Secondary prevention statin. change brilinta to plavix. Continue ASA. Will review records from [facility] when available TTE today Reinforced importance of medical compliance. Smoking cessation Justicifation of Admission Dx: Justifications for Admission: Justification of Admission Dx: Yes JULIEN ANN MD 09/19/20 1524: CARDIO Progress Notes Plan Plan The patient was seen and interviewed as well as examined at the bedside. The chart was reviewed. The case was discussed. Agree with the plan of care. TOMEKA QUIROZ APRN Sep 19, 2020 11:50 JULIEN ANN MD Sep 19, 2020 15:24
[2020-09-19] MEDS ORDERED: CLOPIDOGREL BISULFATE 75 MG TABLET PO ONE (12:00)
[2020-09-19] MEDS: METOPROLOL SUCC 24HR ER 25 MG TAB.ER.24H. PO SCH (12:23)
[2020-09-19] MEDS: SPIRONOLACTONE 25 MG TABLET PO SCH (12:25)
[2020-09-19 12:33] LABS: CALCIUM 9.1 mg/dL (8.5-10.1); CREATININE 0.9 mg/dL (0.6-1.0); GFR 66.3; POTASSIUM 3.9 mmol/L (3.5-5.1)
[2020-09-19 12:35] LABS: BASO # 0.1 x10^3/uL (0.0-0.2); BASO % 1 % (0-3); EOS # 0.1 x10^3/uL (0.0-0.7); EOS % 1 % (0-3); HEMATOCRIT 31.4 % (36.0-47.0); HEMOGLOBIN 10.4 g/dL (12.0-15.5); LYMPH # 1.6 x10^3/uL (1.0-4.8); LYMPH % 21 % (24-48); MEAN CORPUSCULAR HEMOGLOBIN 28 pg (25-35); MEAN CORPUSCULAR HGB CONC 33 g/dL (31-37); MEAN CORPUSCULAR VOLUME 83 fL (79-100); MONO # 0.7 x10^3/uL (0.0-1.1); MONO % 9 % (0-9); NEUT # 5.1 x10^3/uL (1.8-7.7); NEUT % 68 % (31-73); PLATELET COUNT 277 x10^3/uL (140-400); RED BLOOD COUNT 3.78 x10^6/uL (3.50-5.40); WHITE BLOOD COUNT 7.6 x10^3/uL (4.0-11.0)
[2020-09-19 12:40] LABS: CHOLESTEROL/HDL RATIO 5.6
[2020-09-19] MEDS: ISOSORBIDE MONONITRATE ER 30 MG TAB.ER.24H PO SCH (15:11)
--- NOTE | 2020-09-19 15:11 | CARD ---
MR#: [id number] Date of Study: 09/19/2020 Ordering Physician: TOMEKA QUIROZ, Referring Physician: TOMEKA QUIROZ, Tech: Brittney Miguel APPROVED REPORT EXAM: Two-dimensional and M-mode echocardiogram with Doppler and color Doppler. Other Information Quality : AverageHR: 83bpm INDICATION Cardiomyopathy RISK FACTORS Hypertension Diabetes 2D DIMENSIONS RVDd3.3 (2.9-3.5cm)Left Atrium(2D)4.4 (1.6-4.0cm) IVSd1.0 (0.7-1.1cm)Aortic Root(2D)2.8 (2.0-3.7cm) LVDd5.5 (3.9-5.9cm)LVOT Diameter1.9 (1.8-2.4cm) PWd0.9 (0.7-1.1cm)LVDs4.3 (2.5-4.0cm) FS (%) 21.5 %SV63.5 ml LVEF(%)43.1 (>50%) Aortic Valve AoV Peak Erick.122.7cm/sAoV VTI22.1cm AO Peak GR.6.0mmHgLVOT Peak Erick.92.9cm/s LVOT VTI 17.21cmAO Mean GR.3mmHg SILVIA (VMAX)1.63mh4YXP (VTI)2.29cm2 Mitral Valve MV E Mlsqigtv184.2cm/sMV E Peak Gr.67mmHg MV DECEL [id number] A Lxacyvwk86.4cm/s MV NHM58ceE/A Ratio4.5 MVA (PHT)5.19cm2 TDI E/Lateral E'19.7E/Medial E'25.9 Pulmonary Valve PV Peak Jpkahupk39.3cm/sPV Peak Grad.4mmHg Tricuspid Valve TR P. Dbctfjcw972yx/sRAP UXHPHONF8vtNt TR Peak Gr.09poOnIRQK52rmUi LEFT VENTRICLE The left ventricle is normal size. There is normal left ventricular wall thickness. The systolic func tion is severely impaired. The Ejection Fraction is 20%. There is severe global hypokinesis. The basa l septum is grossly normal, otherwise, severe hypokinesis. Tissue Doppler imaging reveals moderate le ft ventricular diastolic dysfunction. RIGHT VENTRICLE The right ventricle is normal size. There is normal right ventricular wall thickness. The right ventr icular systolic function is normal. ATRIA The left atrium size is normal. The right atrium size is normal. The interatrial septum is intact wit h no evidence for an atrial septal defect or patent foramen ovale as noted on 2-D or Doppler imaging. AORTIC VALVE The aortic valve is thickened but opens well. Doppler and Color Flow revealed trace aortic regurgitat ion. Calculated aortic valve area is 2.42 cm2 with maximum pressure gradient of 7 mmHg and mean press ure gradient of 4 mmHg. There is no significant aortic valvular stenosis. MITRAL VALVE The mitral valve is normal in structure and function. There is no evidence of mitral valve prolapse. There is no mitral valve stenosis. Doppler and Color-flow revealed moderate mitral regurgitation. TRICUSPID VALVE The tricuspid valve is normal in structure and function. Doppler and Color Flow revealed trace to mil d tricuspid regurgitation with an estimated PAP of 49 mmHg. There is no tricuspid valve stenosis. PULMONIC VALVE The pulmonic valve is not well visualized. Doppler and Color Flow revealed no pulmonic valvular regur gitation. There is no pulmonic valvular stenosis. GREAT VESSELS The aortic root is normal in size. The IVC is normal in size and collapses >50% with inspiration. PERICARDIAL EFFUSION There is no evidence of significant pericardial effusion. Critical Notification Critical Value: No <Conclusion> The systolic function is severely impaired. The Ejection Fraction is 20%. There is severe global hypokinesis. The basal septum is grossly normal, otherwise, severe hypokinesis . Doppler and Color-flow revealed moderate mitral regurgitation. Doppler and Color Flow revealed trace to mild tricuspid regurgitation with an estimated PAP of 49 mmH g. Signed by : Patrick Moore, Electronically Approved : 09/19/2020 15:11:09
--- NOTE | 2020-09-19 17:20 | RAD ---
EXAM: Chest, 2 views. HISTORY: Congestive heart failure. COMPARISON: 08/25/2019 FINDINGS: 2 views of the chest are obtained. There is diffuse lower lobe predominant interstitial infiltrate. No pleural effusion or pneumothorax is seen. There is a stable prominent cardiac silhouette. IMPRESSION: Diffuse lower lobe predominant interstitial infiltrate. No consolidation is seen. Electronically signed by: Taryn Fernandez MD (09/19/2020 5:17 PM) [facility]
[2020-09-19] MEDS ORDERED: ATORVASTATIN CALCIUM 40 MG TABLET. PO SCH (21:00)
[2020-09-20 03:20] VITALS: BP 98/55
[2020-09-20 07:00] VITALS: BP 102/61
[2020-09-20] MEDS ORDERED: CLOPIDOGREL BISULFATE 75 MG TABLET PO SCH (08:00)
--- NOTE | 2020-09-20 08:34 | PDOC ---
PULMONARY PROGRESS NOTES DATE: 09/20/20 TIME: 08:34 Subjective Patient on 2 L of oxygen off of BiPAP feels less short of air no chest pain no pressure Vitals Vital Signs Date Time Temp Pulse Resp B/P (MAP) Pulse Ox O2 Delivery O2 Flow Rate FiO2 09/20/20 07:00 98.4 71 20 102/61 (75) 97 Nasal Cannula 2.0 98.4 ROS: No Nausea, No Chest Pain, No Abdominal Pain, No Increase Cough General: Alert Lungs: Clear Cardiovascular: S1, S2 Abdomen: Soft Neuro Exam: Alert Extremities: No Edema Skin: Warm Labs Laboratory Tests Test 09/19/20 11:45 White Blood Count 7.6 x10^3/uL (4.0-11.0) Red Blood Count 3.78 x10^6/uL (3.50-5.40) Hemoglobin 10.4 g/dL (12.0-15.5) Hematocrit 31.4 % (36.0-47.0) Mean Corpuscular Volume 83 fL (79-100) Mean Corpuscular Hemoglobin 28 pg (25-35) Mean Corpuscular Hemoglobin Concent 33 g/dL (31-37) Red Cell Distribution Width 16.0 % (11.5-14.5) Platelet Count 277 x10^3/uL (140-400) Neutrophils (%) (Auto) 68 % (31-73) Lymphocytes (%) (Auto) 21 % (24-48) Monocytes (%) (Auto) 9 % (0-9) Eosinophils (%) (Auto) 1 % (0-3) Basophils (%) (Auto) 1 % (0-3) Neutrophils # (Auto) 5.1 x10^3/uL (1.8-7.7) Lymphocytes # (Auto) 1.6 x10^3/uL (1.0-4.8) Monocytes # (Auto) 0.7 x10^3/uL (0.0-1.1) Eosinophils # (Auto) 0.1 x10^3/uL (0.0-0.7) Basophils # (Auto) 0.1 x10^3/uL (0.0-0.2) Sodium Level 140 mmol/L (136-145) Potassium Level 3.9 mmol/L (3.5-5.1) Chloride Level 100 mmol/L (98-107) Carbon Dioxide Level 31 mmol/L (21-32) Anion Gap 9 (6-14) Blood Urea Nitrogen 16 mg/dL (7-20) Creatinine 0.9 mg/dL (0.6-1.0) Estimated GFR (Cockcroft-Gault) 66.3 Glucose Level 167 mg/dL (70-99) Calcium Level 9.1 mg/dL (8.5-10.1) Triglycerides Level 141 mg/dL (0-150) Cholesterol Level 169 mg/dL (0-200) LDL Cholesterol, Calculated 111 mg/dL (0-100) VLDL Cholesterol, Calculated 28 mg/dL (0-40) Non-HDL Cholesterol Calculated 139 mg/dL (0-129) HDL Cholesterol 30 mg/dL (40-60) Cholesterol/HDL Ratio 5.6 Thyroid Stimulating Hormone (TSH) 0.695 uIU/mL (0.358-3.74) Laboratory Tests Test 09/19/20 11:45 White Blood Count 7.6 x10^3/uL (4.0-11.0) Red Blood Count 3.78 x10^6/uL (3.50-5.40) Hemoglobin 10.4 g/dL (12.0-15.5) Hematocrit 31.4 % (36.0-47.0) Mean Corpuscular Volume 83 fL (79-100) Mean Corpuscular Hemoglobin 28 pg (25-35) Mean Corpuscular Hemoglobin Concent 33 g/dL (31-37) Red Cell Distribution Width 16.0 % (11.5-14.5) Platelet Count 277 x10^3/uL (140-400) Neutrophils (%) (Auto) 68 % (31-73) Lymphocytes (%) (Auto) 21 % (24-48) Monocytes (%) (Auto) 9 % (0-9) Eosinophils (%) (Auto) 1 % (0-3) Basophils (%) (Auto) 1 % (0-3) Neutrophils # (Auto) 5.1 x10^3/uL (1.8-7.7) Lymphocytes # (Auto) 1.6 x10^3/uL (1.0-4.8) Monocytes # (Auto) 0.7 x10^3/uL (0.0-1.1) Eosinophils # (Auto) 0.1 x10^3/uL (0.0-0.7) Basophils # (Auto) 0.1 x10^3/uL (0.0-0.2) Sodium Level 140 mmol/L (136-145) Potassium Level 3.9 mmol/L (3.5-5.1) Chloride Level 100 mmol/L (98-107) Carbon Dioxide Level 31 mmol/L (21-32) Anion Gap 9 (6-14) Blood Urea Nitrogen 16 mg/dL (7-20) Creatinine 0.9 mg/dL (0.6-1.0) Estimated GFR (Cockcroft-Gault) 66.3 Glucose Level 167 mg/dL (70-99) Calcium Level 9.1 mg/dL (8.5-10.1) Triglycerides Level 141 mg/dL (0-150) Cholesterol Level 169 mg/dL (0-200) LDL Cholesterol, Calculated 111 mg/dL (0-100) VLDL Cholesterol, Calculated 28 mg/dL (0-40) Non-HDL Cholesterol Calculated 139 mg/dL (0-129) HDL Cholesterol 30 mg/dL (40-60) Cholesterol/HDL Ratio 5.6 Thyroid Stimulating Hormone (TSH) 0.695 uIU/mL (0.358-3.74) Medications Active Scripts Medications Dose Route/Sig Max Daily Dose Days Date Category Ranexa (Ranolazine) 500 Mg Tab.er.12h 1 Tab PO BID 30 09/18/20 Reported Klor-Con 10 (Potassium Chloride) 10 Meq Tablet.er 2 Tab PO BID 30 09/18/20 Reported Metoprolol Succinate ( Xl ) (Metoprolol Succinate) 25 Mg Tab.er.24h 0.5 Tab PO DAILY 09/18/20 Reported Spironolactone 25 Mg Tablet 0.5 Tab PO DAILY 09/18/20 Reported Hydroxyzine Hcl 25 Mg Tablet 1-2 Tab PO PRN QHS PRN 09/18/20 Reported Isosorbide Mononitrate Er (Isosorbide Mononitrate) 30 Mg Tab.er.24h 1 Tab PO DAILY 09/18/20 Reported Lasix (Furosemide) 40 Mg Tablet 40 Mg PO BID 09/18/20 Reported Celexa (Citalopram Hydrobromide) 40 Mg Tablet 1 Tab PO DAILY 09/18/20 Reported Lipitor (Atorvastatin Calcium) 10 Mg Tablet 1 Tab PO DAILY 09/18/20 Reported Brilinta (Ticagrelor) 90 Mg Tablet 90 Mg PO BID 09/18/20 Reported Farxiga (Dapagliflozin Propanediol) 5 Mg Tablet 5 Mg PO DAILY 09/18/20 Reported Entresto 24 mg-26 mg Tablet (Sacubitril/Valsartan) 1 Each Tablet 1 Each PO BID 09/18/20 Reported Pantoprazole Sodium (Pantoprazole Sodium) 40 Mg Tablet.dr 40 Mg PO DAILYAC 30 09/01/19 Rx Impression . IMPRESSION: 1. Acute hypoxic respiratory failure secondary to recurrent acute on chronic systolic congestive heart failure. The patient has prior intubation secondary to congestive heart failure in July. 2. Severe cardiomyopathy with an ejection fraction of 25%, ischemic type. Status post stenting in June of left anterior descending. 3. Underlying chronic obstructive pulmonary disease. 4. Abnormal chest x-ray consistent with congestive heart failure. 5. No clinical symptoms suggestive of pneumonia. Plan . 6-minute walk prior to discharge Continue current oxygen supplementation Diurese Follow cardiology input Can discharge from my standpoint of view next 24- 48-hour BRIGETTE JAVIER MD Sep 20, 2020 08:34
--- NOTE | 2020-09-20 08:35 | PDOC ---
PROGRESS NOTES Date of Service: DATE: 09/20/20 TIME: 08:35 Chief Complaint Chief Complaint impression ACUTE HYPOXIC Respiratory failure, multifactorial including congestive heart failure, systolic function is severely impaired. EF 25% global hypokinesis of the left ventricle ACUTE exac chronic obstructive pulmonary disease, neg COVID-19. morbid obesity Acute myocardial infarction with an elevated troponin 09-01 plan admitted. Consult Pulmonary, consult Cardiology. IV Lasix, cvc cardiac monitoring, home medications, deep venous thrombosis prophylaxis. smoking cessation education provided 6-minute walk prior to discharge Continue current oxygen supplementation Continue lasix therapy, PO Entresto, Toprol, aldactone Secondary prevention statin. change brilinta to plavix. Continue ASA. NEEDS LIFEVEST Full code. Prognosis long-term is guarded. 28 MIN PT EXAM, CHART REVIEW,> 50% OF TIME SPENT WITH EXAM, CHART REVIEW, PT CARE COORDINATION History of Present Illness History of Present Illness HPI 50-year-old female who has known COPD and CHF. She presented with shortness of breath, rates it a 7/10. notes associated weakness, has been occurring for several days. She increased her home meds, but that did not work. She is also COVID NEG , been admitted to the CVC floor where she is being examined. consults with Pulmonary Medicine and Cardiology Vitals Vitals Vital Signs Date Time Temp Pulse Resp B/P (MAP) Pulse Ox O2 Delivery O2 Flow Rate FiO2 09/20/20 07:00 98.4 71 20 102/61 (75) 97 Nasal Cannula 2.0 98.4 Physical Exam Physical Exam HEENT: Normal cephalic atraumatic, external auditory canals are patent. EYES: Extraocular muscles are intact, pupils are equally round and reactive to light and accommodation. MUSCULOSKELETAL: Well developed, well nourished, good range of motion ENDOCRINE: No thyromegaly was palpated. LYMPHATICS: No cervical chain or axillary nodes were noted. HEMATOPOIETIC: No bruising. NECK: Supple, no JVD, no thyromegaly was noted. PULMONARY: She has bibasilar crackles. HEART: RRR, S1, S2 present. Peripheral pulses intact, no obvious murmurs were noted. ABDOMEN: Soft, nontender. Positive bowel sounds no organomegaly, normal bowel sounds. EXTREMITIES: Without any cyanosis, clubbing, or edema. Pedal pulses intact, Homans sign is negative. NEUROLOGIC: Normal speech, normal tone. A & O x3, moves all extremities, no obvious focal deficits. PSYCHIATRIC: Normal affect, normal mood. Stable. SKIN: No ulcerations or rashes, good skin turgor, no jaundice. VASCULAR: Good capillary refill, neurovascular bundle appears to be intact. General: Alert, Oriented X3, Cooperative, No acute distress Heart: Regular rate (tele SR), Normal S1 Lungs: Clear Abdomen: Normal bowel sounds, Soft, Other (non-distended ) Extremities: No cyanosis, Other (trace bilateral LE edema ) Skin: No significant lesion Labs LABS Laboratory Tests Test 09/19/20 11:45 White Blood Count 7.6 x10^3/uL (4.0-11.0) Red Blood Count 3.78 x10^6/uL (3.50-5.40) Hemoglobin 10.4 g/dL (12.0-15.5) Hematocrit 31.4 % (36.0-47.0) Mean Corpuscular Volume 83 fL (79-100) Mean Corpuscular Hemoglobin 28 pg (25-35) Mean Corpuscular Hemoglobin Concent 33 g/dL (31-37) Red Cell Distribution Width 16.0 % (11.5-14.5) Platelet Count 277 x10^3/uL (140-400) Neutrophils (%) (Auto) 68 % (31-73) Lymphocytes (%) (Auto) 21 % (24-48) Monocytes (%) (Auto) 9 % (0-9) Eosinophils (%) (Auto) 1 % (0-3) Basophils (%) (Auto) 1 % (0-3) Neutrophils # (Auto) 5.1 x10^3/uL (1.8-7.7) Lymphocytes # (Auto) 1.6 x10^3/uL (1.0-4.8) Monocytes # (Auto) 0.7 x10^3/uL (0.0-1.1) Eosinophils # (Auto) 0.1 x10^3/uL (0.0-0.7) Basophils # (Auto) 0.1 x10^3/uL (0.0-0.2) Sodium Level 140 mmol/L (136-145) Potassium Level 3.9 mmol/L (3.5-5.1) Chloride Level 100 mmol/L (98-107) Carbon Dioxide Level 31 mmol/L (21-32) Anion Gap 9 (6-14) Blood Urea Nitrogen 16 mg/dL (7-20) Creatinine 0.9 mg/dL (0.6-1.0) Estimated GFR (Cockcroft-Gault) 66.3 Glucose Level 167 mg/dL (70-99) Calcium Level 9.1 mg/dL (8.5-10.1) Triglycerides Level 141 mg/dL (0-150) Cholesterol Level 169 mg/dL (0-200) LDL Cholesterol, Calculated 111 mg/dL (0-100) VLDL Cholesterol, Calculated 28 mg/dL (0-40) Non-HDL Cholesterol Calculated 139 mg/dL (0-129) HDL Cholesterol 30 mg/dL (40-60) Cholesterol/HDL Ratio 5.6 Thyroid Stimulating Hormone (TSH) 0.695 uIU/mL (0.358-3.74) Comment Review of Relevant I have reviewed the following items arian (where applicable) has been applied. Labs Laboratory Tests Test 09/19/20 11:45 White Blood Count 7.6 x10^3/uL (4.0-11.0) Red Blood Count 3.78 x10^6/uL (3.50-5.40) Hemoglobin 10.4 g/dL (12.0-15.5) Hematocrit 31.4 % (36.0-47.0) Mean Corpuscular Volume 83 fL (79-100) Mean Corpuscular Hemoglobin 28 pg (25-35) Mean Corpuscular Hemoglobin Concent 33 g/dL (31-37) Red Cell Distribution Width 16.0 % (11.5-14.5) Platelet Count 277 x10^3/uL (140-400) Neutrophils (%) (Auto) 68 % (31-73) Lymphocytes (%) (Auto) 21 % (24-48) Monocytes (%) (Auto) 9 % (0-9) Eosinophils (%) (Auto) 1 % (0-3) Basophils (%) (Auto) 1 % (0-3) Neutrophils # (Auto) 5.1 x10^3/uL (1.8-7.7) Lymphocytes # (Auto) 1.6 x10^3/uL (1.0-4.8) Monocytes # (Auto) 0.7 x10^3/uL (0.0-1.1) Eosinophils # (Auto) 0.1 x10^3/uL (0.0-0.7) Basophils # (Auto) 0.1 x10^3/uL (0.0-0.2) Sodium Level 140 mmol/L (136-145) Potassium Level 3.9 mmol/L (3.5-5.1) Chloride Level 100 mmol/L (98-107) Carbon Dioxide Level 31 mmol/L (21-32) Anion Gap 9 (6-14) Blood Urea Nitrogen 16 mg/dL (7-20) Creatinine 0.9 mg/dL (0.6-1.0) Estimated GFR (Cockcroft-Gault) 66.3 Glucose Level 167 mg/dL (70-99) Calcium Level 9.1 mg/dL (8.5-10.1) Triglycerides Level 141 mg/dL (0-150) Cholesterol Level 169 mg/dL (0-200) LDL Cholesterol, Calculated 111 mg/dL (0-100) VLDL Cholesterol, Calculated 28 mg/dL (0-40) Non-HDL Cholesterol Calculated 139 mg/dL (0-129) HDL Cholesterol 30 mg/dL (40-60) Cholesterol/HDL Ratio 5.6 Thyroid Stimulating Hormone (TSH) 0.695 uIU/mL (0.358-3.74) Laboratory Tests Test 09/19/20 11:45 White Blood Count 7.6 x10^3/uL (4.0-11.0) Red Blood Count 3.78 x10^6/uL (3.50-5.40) Hemoglobin 10.4 g/dL (12.0-15.5) Hematocrit 31.4 % (36.0-47.0) Mean Corpuscular Volume 83 fL (79-100) Mean Corpuscular Hemoglobin 28 pg (25-35) Mean Corpuscular Hemoglobin Concent 33 g/dL (31-37) Red Cell Distribution Width 16.0 % (11.5-14.5) Platelet Count 277 x10^3/uL (140-400) Neutrophils (%) (Auto) 68 % (31-73) Lymphocytes (%) (Auto) 21 % (24-48) Monocytes (%) (Auto) 9 % (0-9) Eosinophils (%) (Auto) 1 % (0-3) Basophils (%) (Auto) 1 % (0-3) Neutrophils # (Auto) 5.1 x10^3/uL (1.8-7.7) Lymphocytes # (Auto) 1.6 x10^3/uL (1.0-4.8) Monocytes # (Auto) 0.7 x10^3/uL (0.0-1.1) Eosinophils # (Auto) 0.1 x10^3/uL (0.0-0.7) Basophils # (Auto) 0.1 x10^3/uL (0.0-0.2) Sodium Level 140 mmol/L (136-145) Potassium Level 3.9 mmol/L (3.5-5.1) Chloride Level 100 mmol/L (98-107) Carbon Dioxide Level 31 mmol/L (21-32) Anion Gap 9 (6-14) Blood Urea Nitrogen 16 mg/dL (7-20) Creatinine 0.9 mg/dL (0.6-1.0) Estimated GFR (Cockcroft-Gault) 66.3 Glucose Level 167 mg/dL (70-99) Calcium Level 9.1 mg/dL (8.5-10.1) Triglycerides Level 141 mg/dL (0-150) Cholesterol Level 169 mg/dL (0-200) LDL Cholesterol, Calculated 111 mg/dL (0-100) VLDL Cholesterol, Calculated 28 mg/dL (0-40) Non-HDL Cholesterol Calculated 139 mg/dL (0-129) HDL Cholesterol 30 mg/dL (40-60) Cholesterol/HDL Ratio 5.6 Thyroid Stimulating Hormone (TSH) 0.695 uIU/mL (0.358-3.74) Microbiology 09/17/20 Blood Culture - Preliminary, Resulted NO GROWTH AFTER 2 DAYS Medications Current Medications Ondansetron HCl (Zofran) 4 mg PRN Q4HRS PRN IV NAUSEA/VOMITING; Start 09/17/20 at 20:00 Acetaminophen (Tylenol) 650 mg PRN Q4HRS PRN PO TEMP OVER 100.4F OR MILD PAIN Last administered on 09/18/20at 09:45; Start 09/17/20 at 20:00 Diphenhydramine HCl (Benadryl) 25 mg PRN Q4HRS PRN IVP ITCHING; Start 09/17/20 at 20:00 Docusate Sodium (Colace) 100 mg PRN BID PRN PO HARD STOOLS; Start 09/17/20 at 20:00 Guaifenesin (Robitussin) 200 mg PRN Q4HRS PRN PO COUGH; Start 09/17/20 at 20:00 Lorazepam (Ativan) 0.5 mg PRN Q4HRS PRN PO ANXIETY / AGITATION Last administered on 09/19/20at 21:10; Start 09/17/20 at 20:00 Apixaban (Eliquis) 5 mg BID PO Last administered on 09/17/20at 22:02; Start 09/17/20 at 21:00; Stop 09/18/20 at 11:42; Status DC Atorvastatin Calcium (Lipitor) 40 mg QHS PO Last administered on 09/17/20at 22:02; Start 09/17/20 at 21:00; Stop 09/18/20 at 11:42; Status DC Carvedilol (Coreg) 3.125 mg BIDWMEALS PO ; Start 09/18/20 at 08:00; Stop 09/18/20 at 11:42; Status DC Clopidogrel Bisulfate (Plavix) 75 mg DAILYWBKFT PO ; Start 09/18/20 at 08:00; Stop 09/18/20 at 11:42; Status DC Lisinopril (Prinivil) 2.5 mg DAILY PO ; Start 09/18/20 at 09:00; Stop 09/18/20 at 11:42; Status DC Pantoprazole Sodium (Protonix) 40 mg DAILYAC PO Last administered on 09/19/20at 08:56; Start 09/18/20 at 07:30 Potassium Chloride (Klor-Con) 20 meq DAILYWBKFT PO Last administered on 09/18/20at 09:46; Start 09/18/20 at 08:00; Stop 09/18/20 at 11:42; Status DC Influenza Virus Vaccine Quadrival (Fluzone Quad Syringe) 0.5 ml ONCE ONCE VAX IM Last administered on 09/18/20at 15:15; Start 09/18/20 at 09:00; Stop 09/18/20 at 09:01; Status DC Furosemide (Lasix) 40 mg BID92 IVP Last administered on 09/19/20at 15:10; Start 09/17/20 at 20:15 Piperacillin Sod/ Tazobactam Sod (Zosyn Per Pharmacy) 1 each PRN DAILY PRN MC SEE COMMENTS; Start 09/17/20 at 21:15; Stop 09/18/20 at 18:47; Status DC Vancomycin HCl (Vanco Per Pharmacy) 1 each PRN DAILY PRN MC SEE COMMENTS Last administered on 09/18/20at 11:25; Start 09/17/20 at 21:30; Stop 09/18/20 at 18:47; Status DC Vancomycin HCl 2 gm/Sodium Chloride 500 ml @ 250 mls/hr 1X ONCE IV Last administered on 09/17/20at 22:04; Start 09/17/20 at 21:30; Stop 09/17/20 at 23:29; Status DC Piperacillin Sod/ Tazobactam Sod 3.375 gm/Sodium Chloride 50 ml @ 100 mls/hr Q6HRS IV Last administered on 09/18/20at 16:20; Start 09/18/20 at 00:00; Stop 09/18/20 at 18:47; Status DC Vancomycin HCl 1.25 gm/Sodium Chloride 250 ml @ 166.667 mls/hr Q12H IV Last administered on 09/18/20at 09:50; Start 09/18/20 at 10:00; Stop 09/18/20 at 18:47; Status DC Vancomycin HCl (Vancomycin Trough Level) 1 each 1X ONCE MC ; Start 09/19/20 at 09:30; Stop 09/19/20 at 09:31; Status Cancel Info (Anti-Coagulation Monitoring By Pharmacy) 1 each PRN DAILY PRN MC SEE COMMENTS; Start 09/18/20 at 10:15; Stop 09/18/20 at 13:51; Status DC Atorvastatin Calcium (Lipitor) 10 mg QHS PO Last administered on 09/18/20at 20:50; Start 09/18/20 at 21:00; Stop 09/19/20 at 13:48; Status DC Hydroxyzine HCl (Atarax) 25 mg PRN QHS PRN PO INSOMNIA; Start 09/18/20 at 11:45 Isosorbide Mononitrate (Imdur) 30 mg DAILY PO Last administered on 09/19/20at 15:11; Start 09/18/20 at 12:00 Metoprolol Succinate (Toprol Xl) 12.5 mg DAILY PO Last administered on 09/19/20at 12:23; Start 09/18/20 at 12:00 Potassium Chloride (Klor-Con) 20 meq BID PO Last administered on 09/19/20at 21:11; Start 09/18/20 at 12:00 Ranolazine (Ranexa) 500 mg BID PO Last administered on 09/19/20at 21:11; Start 09/18/20 at 12:00 Sacubitril/ Valsartan (Entresto 24 Mg-26 Mg) 1 tab BID PO Last administered on 09/18/20at 20:48; Start 09/18/20 at 12:00 Spironolactone (Aldactone) 12.5 mg DAILY PO Last administered on 09/19/20at 12:25; Start 09/18/20 at 12:00 Ticagrelor (Brilinta) 90 mg BID PO Last administered on 09/19/20at 08:56; Start 09/18/20 at 12:00; Stop 09/19/20 at 11:52; Status DC Citalopram Hydrobromide (CeleXA) 40 mg DAILY PO Last administered on 09/19/20at 08:56; Start 09/18/20 at 12:00 Non-Formulary Medication (Dapagliflozin Propanediol (Farxiga)) 5 mg DAILY PO ; Start 09/18/20 at 11:45; Stop 09/19/20 at 16:56; Status DC Hydroxyzine HCl (Atarax) 50 mg PRN Q6HRS PRN PO ITCHING; Start 09/18/20 at 11:45 Acetaminophen/ Hydrocodone Bitart (Lortab 5/325) 1 tab PRN Q4HRS PRN PO MODERATE TO SEVERE PAIN Last administered on 09/19/20at 21:11; Start 09/18/20 at 11:45 Lactobacillus Rhamnosus (Culturelle) 1 cap BID PO Last administered on 09/19/20at 21:11; Start 09/18/20 at 12:00 Clopidogrel Bisulfate (Plavix) 75 mg DAILYWBKFT PO ; Start 09/20/20 at 08:00 Clopidogrel Bisulfate (Plavix) 75 mg 1X ONCE PO Last administered on 09/19/20at 12:22; Start 09/19/20 at 12:00; Stop 09/19/20 at 12:01; Status DC Atorvastatin Calcium (Lipitor) 40 mg QHS PO Last administered on 09/19/20at 21:11; Start 09/19/20 at 21:00 Active Scripts Active Pantoprazole Sodium (Pantoprazole Sodium) 40 Mg Tablet.dr 40 Mg PO DAILYAC 30 Days Reported Ranexa (Ranolazine) 500 Mg Tab.er.12h 1 Tab PO BID 30 Days Klor-Con 10 (Potassium Chloride) 10 Meq Tablet.er 2 Tab PO BID 30 Days Metoprolol Succinate ( Xl ) (Metoprolol Succinate) 25 Mg Tab.er.24h 0.5 Tab PO DAILY Spironolactone 25 Mg Tablet 0.5 Tab PO DAILY Hydroxyzine Hcl 25 Mg Tablet 1-2 Tab PO PRN QHS PRN Isosorbide Mononitrate Er (Isosorbide Mononitrate) 30 Mg Tab.er.24h 1 Tab PO DAILY Lasix (Furosemide) 40 Mg Tablet 40 Mg PO BID Celexa (Citalopram Hydrobromide) 40 Mg Tablet 1 Tab PO DAILY Lipitor (Atorvastatin Calcium) 10 Mg Tablet 1 Tab PO DAILY Brilinta (Ticagrelor) 90 Mg Tablet 90 Mg PO BID Farxiga (Dapagliflozin Propanediol) 5 Mg Tablet 5 Mg PO DAILY Entresto 24 mg-26 mg Tablet (Sacubitril/Valsartan) 1 Each Tablet 1 Each PO BID Vitals/I & O Vital Sign - Last 24 Hours 09/19/20 09/19/20 09/19/20 09/19/20 08:53 08:54 09:03 10:03 B/P (MAP) 104/61 (75) Pulse Ox 97 O2 Delivery Nasal Cannula Nasal Cannula Nasal Cannula O2 Flow Rate 2.0 2.0 2.0 09/19/20 09/19/20 09/19/20 09/19/20 10:32 12:23 14:41 15:11 Temp 97.8 98.1 97.8 98.1 Pulse 80 86 82 82 Resp 18 18 B/P (MAP) 96/55 (69) 115/63 123/84 (97) 123/84 Pulse Ox 97 98 O2 Delivery Nasal Cannula Nasal Cannula O2 Flow Rate 2.0 2.0 09/19/20 09/19/20 09/19/20 09/19/20 19:20 19:50 21:00 21:11 Temp 98.0 98.0 Pulse 77 77 77 Resp 20 B/P (MAP) 92/52 (65) 92/52 92/52 Pulse Ox 98 O2 Delivery Nasal Cannula Nasal Cannula O2 Flow Rate 2.0 2.0 09/19/20 09/19/20 09/19/20 09/20/20 21:11 22:11 23:00 03:20 Temp 97.8 98.4 97.8 98.4 Pulse 73 72 Resp 20 20 B/P (MAP) 93/55 (68) 98/55 (69) Pulse Ox 98 91 98 O2 Delivery Room Air Nasal Cannula Room Air Nasal Cannula O2 Flow Rate 2.0 2.0 09/20/20 07:00 Temp 98.4 98.4 Pulse 71 Resp 20 B/P (MAP) 102/61 (75) Pulse Ox 97 O2 Delivery Nasal Cannula O2 Flow Rate 2.0 Intake and Output 09/19/20 09/19/20 09/20/20 15:00 23:00 07:00 Intake Total 800 ml 400 ml Output Total 1000 ml 1150 ml 400 ml Balance -1000 ml -350 ml 0 ml Justicifation of Admission Dx: Justifications for Admission: Justification of Admission Dx: Yes CHF: Hemodynamic Instability KENNY LUEVANO MD Sep 20, 2020 08:35
[2020-09-20] MEDS: POTASSIUM CHLORIDE 10 MEQ TABLET.ER. PO SCH (09:50)
[2020-09-20] MEDS: CITALOPRAM 20 MG TABLET. PO SCH (09:50)
[2020-09-20] MEDS: SACUBITRIL/VALSARTAN 24/26MG TABLET. PO SCH (09:51)
[2020-09-20] MEDS: LACTOBACILLUS RHAMNOSUS GG 1 CAPSULE. PO SCH (09:51)
[2020-09-20] MEDS: SPIRONOLACTONE 25 MG TABLET PO SCH (09:52)
[2020-09-20] MEDS: PANTOPRAZOLE 40 MG TABLET.DR. PO SCH (09:52)
[2020-09-20] MEDS: FUROSEMIDE 40 MG/4 ML VIAL. IVP SCH (09:53)
[2020-09-20] MEDS: RANOLAZINE 500 MG TAB.ER.12H PO SCH (09:58)
--- NOTE | 2020-09-20 10:11 | NUR ---
SS following up with discharge planning. SS reviewed pt chart and discussed with pt RN. Pt is currently requiring oxygen. COVID19 negative. Pt has no home oxygen at home. Possible need for six minute walk. Pt reported some concerns with affording co-pays for medications. SS met with pt and pt reported that she has coupons for all medications and her co-pay for Entresto is only between $10-$20. Pt reported that she will get the medications that she needs today and will pick the rest up when she gets paid. Pt reported that her last paycheck was short because she was out sick. Pt's RN notified. SS will continue to follow for discharge planning.
[2020-09-20 11:00] VITALS: BP 110/59
--- NOTE | 2020-09-20 11:45 | PDOC ---
TOMEKA QUIROZ [employer] DIRECT[employer] 09/20/20 1144: CARDIO Progress Notes Date and Time Date of Service 09/20/2020 Time of Evaluation 1100 Subjective Subjective: No Chest Pain, No shortness of breath, No Palpitations Vitals Vitals Vital Signs Date Time Temp Pulse Resp B/P (MAP) Pulse Ox O2 Delivery O2 Flow Rate FiO2 09/20/20 11:00 97.4 93 20 110/59 (76) 93 Nasal Cannula 2.0 97.4 Weight Weight [ ] Input and Output Intake and Output Intake and Output 09/20/20 07:00 Intake Total 1200 ml Output Total 2550 ml Balance -1350 ml Intake Oral 1200 ml Output Urine Total 2550 ml # Voids 2 Laboratory Labs Laboratory Tests Test 09/19/20 11:45 White Blood Count 7.6 x10^3/uL (4.0-11.0) Red Blood Count 3.78 x10^6/uL (3.50-5.40) Hemoglobin 10.4 g/dL (12.0-15.5) Hematocrit 31.4 % (36.0-47.0) Mean Corpuscular Volume 83 fL (79-100) Mean Corpuscular Hemoglobin 28 pg (25-35) Mean Corpuscular Hemoglobin Concent 33 g/dL (31-37) Red Cell Distribution Width 16.0 % (11.5-14.5) Platelet Count 277 x10^3/uL (140-400) Neutrophils (%) (Auto) 68 % (31-73) Lymphocytes (%) (Auto) 21 % (24-48) Monocytes (%) (Auto) 9 % (0-9) Eosinophils (%) (Auto) 1 % (0-3) Basophils (%) (Auto) 1 % (0-3) Neutrophils # (Auto) 5.1 x10^3/uL (1.8-7.7) Lymphocytes # (Auto) 1.6 x10^3/uL (1.0-4.8) Monocytes # (Auto) 0.7 x10^3/uL (0.0-1.1) Eosinophils # (Auto) 0.1 x10^3/uL (0.0-0.7) Basophils # (Auto) 0.1 x10^3/uL (0.0-0.2) Sodium Level 140 mmol/L (136-145) Potassium Level 3.9 mmol/L (3.5-5.1) Chloride Level 100 mmol/L (98-107) Carbon Dioxide Level 31 mmol/L (21-32) Anion Gap 9 (6-14) Blood Urea Nitrogen 16 mg/dL (7-20) Creatinine 0.9 mg/dL (0.6-1.0) Estimated GFR (Cockcroft-Gault) 66.3 Glucose Level 167 mg/dL (70-99) Calcium Level 9.1 mg/dL (8.5-10.1) Triglycerides Level 141 mg/dL (0-150) Cholesterol Level 169 mg/dL (0-200) LDL Cholesterol, Calculated 111 mg/dL (0-100) VLDL Cholesterol, Calculated 28 mg/dL (0-40) Non-HDL Cholesterol Calculated 139 mg/dL (0-129) HDL Cholesterol 30 mg/dL (40-60) Cholesterol/HDL Ratio 5.6 Thyroid Stimulating Hormone (TSH) 0.695 uIU/mL (0.358-3.74) Microbiology Micro Microbiology 09/17/20 Blood Culture - Preliminary, Resulted NO GROWTH AFTER 2 DAYS Physical Exam HEENT: Neck Supple W Full Motion Chest: Symmetric LUNGS: Other (diminished bases) Heart: RRR (SR without significant ectopies) Abdomen: Soft N/T Extremities: No Edema, No Calf Tenderness Neurology: alert, oriented, follow commands Assessment Assessment 1. Acute respiratory failure with CHF, AECOPD appears compensated 2. Acute on chronic systolic CHF; due to missed meds. Has been out of Lasix/Entresto x 2 weeks. Has been evaluated by [facility] HF team. Last followup in November. 3. CAD s/p PCI/NIYA to LAD 07/2019 and then PTCA on 09/22/[address] [facility] due to thrmobus in the stent possibly either plavix failure vs noncompliance hence was placed on brilinta 4. ICM: LVEF is 20% compensated 5. LE PAD: clinically stable 6. DM2: per PCP 7. Tobaccoism; discussed/encouraged cessation 8. Noncompliance due to financial constraints Recommendations Continue lasix therapy Resume Entresto, Toprol, aldactone Secondary prevention statin. Continue ASA unable to place on plavix as noted above. Will resume brilinta Reinforced importance of medical compliance. Smoking cessation Lifevest was ordered and discussed in the past but pt reported ins would not cover it. Pt follows with [facility] cardiology and will defer further with them May Dc today from cardiac perspective. Justicifation of Admission Dx: Justifications for Admission: Justification of Admission Dx: Yes CHF: Hemodynamic Instability JULIEN ANN MD 09/21/20 0905: CARDIO Progress Notes Plan Plan Pt. seen and examined. Agree with above [employer] note. Late entry for 09/20/2020 TOMEKA QUIROZ [employer] DIRECTOR Sep 20, 2020 11:44 JULIEN ANN MD Sep 21, 2020 09:05
[2020-09-20] MEDS ORDERED: ASPIRIN ENTERIC COATED 81 MG TABLET.DR. PO SCH (12:00)
[2020-09-20] MEDS: HYDROcodone/APAP 5/325MG 1 TAB TABLET PO PRN (12:52)
[2020-09-20] MEDS: ISOSORBIDE MONONITRATE ER 30 MG TAB.ER.24H PO SCH (12:53)
[2020-09-20] MEDS: LORazepam 0.5 MG TABLET PO PRN (12:53)
[2020-09-20] MEDS: METOPROLOL SUCC 24HR ER 25 MG TAB.ER.24H. PO SCH (12:54)
[2020-09-20 14:54] VITALS: BP 90/43
[2020-09-20] MEDS ORDERED: FUROSEMIDE 40 MG TABLET. PO SCH (16:00)
[2020-09-20] MEDS ORDERED: ASPI-630 PO (18:14)
--- NOTE | 2020-09-20 18:46 | NUR ---
Discharge Note: MARJAN LAZO Discharge instructions and discharge home medications reviewed with Patient and a copy given. All questions have been answered and understanding verbalized. The following instructions and handouts were given: CHF, ASA, Patient discharged to home with self care via friend and private vehicle.
[2020-09-20] MEDS ORDERED: ATORVASTATIN CALCIUM 40 MG TABLET. PO SCH (21:00)
[2020-09-20] MEDS ORDERED: TICAGRELOR 90 MG TABLET. PO SCH (21:00)
== END 2020-09-20 20:15 | disposition home or self-care (01) | DRG 291 ==
LOC: 6 SOUTH 18:11 → 2 NORTH 09-19 00:18
PROVIDERS: ADMIT Internal Medicine; ATTEND Internal Medicine
PROC: 5A09357 Assistance with Respiratory Ventilation, Less than 24 Consecutive Hours, Continuous Positive Airway Pressure (ICD-10-PCS; principal; 2020-09-17)
DX: I11.0 Hypertensive heart disease with heart failure (principal); J96.01 Acute respiratory failure with hypoxia; J44.1 Chronic obstructive pulmonary disease with (acute) exacerbation; I50.23 Acute on chronic systolic (congestive) heart failure; E11.9 Type 2 diabetes mellitus without complications; E78.5 Hyperlipidemia, unspecified; F17.210 Nicotine dependence, cigarettes, uncomplicated; E66.01 Morbid (severe) obesity due to excess calories; I25.10 Atherosclerotic heart disease of native coronary artery without angina pectoris; I25.5 Ischemic cardiomyopathy; Z20.828 Contact with and (suspected) exposure to other viral communicable diseases; M19.90 Unspecified osteoarthritis, unspecified site; K21.9 Gastro-esophageal reflux disease without esophagitis; G89.29 Other chronic pain; Z82.49 Family history of ischemic heart disease and other diseases of the circulatory system; Z83.3 Family history of diabetes mellitus; Z87.01 Personal history of pneumonia (recurrent); I25.2 Old myocardial infarction; Z90.710 Acquired absence of both cervix and uterus; Z91.19 Patient's noncompliance with other medical treatment and regimen; Z98.61 Coronary angioplasty status; Z90.49 Acquired absence of other specified parts of digestive tract; Z68.30 Body mass index [BMI] 30.0-30.9, adult
CPT/HCPCS: 36415; 36600; 71046; 80048; 80061; 82805; 83605; 83880; 84443; 85025; 87040; 90471; 90686; 93306; 94660; 94760; J1940; J2543; J3370; J7040; J7050; U0003; G0378; J7030